=== PATIENT | female | born 1990 | race Caucasian/White ===

== ENCOUNTER 2019-01-12 08:42 | Emergency (ER) | payer BC ==
[2019-01-12] MEDS ORDERED: METHYLPREDNISOLONE 125 MG INJ ONE (09:00)
[2019-01-12] MEDS ORDERED: LEVALBUTEROL 1.25 MG/3 ML NEB ONE (09:00)
[2019-01-12 09:45] LABS: Absolute Lymphocytes (CBC) 3.6 K/uL (0.7-4.9); Hematocrit 41.7 % (36.0-45.0); MPV 9.8 fL (7.6-11.3); RBC Red Blood Cell Count 4.63 M/uL (3.86-4.86)
[2019-01-12 10:03] LABS: Urine Blood TRACE (NEG); Urine Glucose NEGATIVE (NEG); Urine Protein NEGATIVE (NEG); Urine Specific Gravity 1.025 (1.005-1.030); Urine pH 5.5 (5.0-7.0)
[2019-01-12] MEDS ORDERED: CODEINE 30MG/APAP 300MG TAB ONE ×2 (11:04→11:09)
[2019-01-12] MEDS ORDERED: PROMETHAZINE 25 MG TABLET ONE (11:04)
[2019-01-12] MEDS ORDERED: BENZONATATE 100 MG CAP PO ONE (11:04)
--- NOTE | 2019-01-12 12:30 | RAD REPORT ---
EXAM DESCRIPTION: CT - Chest For Pe Angio - 01/12/2019 12:22 pm CLINICAL HISTORY: cough; sob COMPARISON: None TECHNIQUE: Dynamically enhanced 3 mm thick images of the chest were obtained during administration o f approximately 100mL Isovue 370 IV contrast. Exam was repeated approximately 2 hours after the initi al examination due to excessive motion on the initial study. Patient received an additional 100 susan liters of contrast for the second scan. Coronal and oblique MIP reconstruction images were generated and reviewed. Exam utilizes a protocol to evaluate the pulmonary arterial tree. All CT scans are performed using dose optimization technique as appropriate and may include automated exposure control or mA/KV adjustment according to patient size. FINDINGS: No pulmonary emboli are identified. The aorta as imaged shows no acute or suspicious finding. No pericardial thickening or effusion. No infiltrate or mass. Minimal atelectasis in the posterior aspect of each lower lobe. No pleural eff usion or pleural thickening. No mediastinal or hilar suspicious masses. No chest wall masses or abnormal axillary lymphadenopathy. IMPRESSION: No pulmonary emboli identified. No other significant or suspicious findings.
--- NOTE | 2019-01-12 13:29 | ER ---
Nurse's Notes [facility] Name: Joanna Corado Age: 28 yrs Sex: Female : 1990 Arrival Date: 01/12/2019 Time: 08:45 Bed 13 Private MD: Diagnosis: Cough;Bronchitis, not specified as acute or chronic;Shortness of breath Presentation: 01/12 08:56 Presenting complaint: Patient states: has been dealing with bronchitis since November and has seen 2 MDs and been on mx abx and steroid packs. Last night the dyspnea started again and is worse with activity. Transition of care: patient was not received from another setting of care. Onset of symptoms was January 11, 2019. Risk Assessment: Do you want to hurt yourself or someone else? Patient reports no desire to harm self or others. Initial Sepsis Screen: Does the patient meet any 2 criteria? RR > 20 per min. No. Patient's initial sepsis screen is negative. Does the patient have a suspected source of infection? No. Patient's initial sepsis screen is negative. Care prior to arrival: None. 08:56 Method Of Arrival: Wheelchair 08:56 Acuity: DIAZ 2 sv Triage Assessment: 09:00 General: Appears uncomfortable, well groomed, well developed, Behavior is cooperative, sv appropriate for age. Pain: Denies pain. Neuro: Level of Consciousness is awake, alert, obeys commands, Oriented to person, place, time, situation, Moves all extremities. Full function Gait is steady. Respiratory: Reports shortness of breath at rest on exertion cough that is non-productive, persistent labored breathing since last night Airway is patent Respiratory effort is labored, shallow, Respiratory pattern is hyperventilation tachypnea Onset: The symptoms/episode began/occurred yesterday, the patient has moderate shortness of breath. Derm: Skin is pink, warm \T\ dry. 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 - Social history:: Smoking status: Patient/guardian denies using tobacco. - Ebola Screening: : No symptoms or risks identified at this time. Screenin:00 Abuse screen: Denies threats or abuse. Denies injuries from another. Nutritional sv screening: No deficits noted. Tuberculosis screening: No symptoms or risk factors identified. Fall Risk None identified. Assessment: 10:00 Cardiovascular: Heart tones S1 S2 present Capillary refill < 3 seconds Patient's skin ca1 is warm and dry. Rhythm is sinus rhythm. Respiratory: Reports cough that is persistent Airway is patent Respiratory effort is even, unlabored, Respiratory pattern is regular, symmetrical, Breath sounds are clear bilaterally. 10:05 Reassessment: Patient appears in no apparent distress at this time. Patient is alert, ca1 oriented x 3, equal unlabored respirations, skin warm/dry/pink. 11:15 Reassessment: Patient appears in no apparent distress at this time. Patient is alert, ca1 oriented x 3, equal unlabored respirations, skin warm/dry/pink. Unable to perform chest CT because of coughing unable to stay still. commercial hvac service technician informed provider. Meds ordered and given. Refused Tylenol#3 at this time. 12:32 Reassessment: Patient appears in no apparent distress at this time. Patient is alert, ca1 oriented x 3, equal unlabored respirations, skin warm/dry/pink. Pt back from CT. Unable to push contrast on initial IV, second IV inserted by EVERT Valencia, as reported by commercial hvac service technician. 13:30 Reassessment: Patient appears in no apparent distress at this time. Patient is alert, ca1 oriented x 3, equal unlabored respirations, skin warm/dry/pink. Vital Signs: 08:48 BP 124 / 84; Pulse 93; Resp 42; Temp 98.1; Pulse Ox 99% ; Weight 136.08 kg; sv 09:58 BP 109 / 72; Pulse 93; Resp 36; Pulse Ox 99% ; sv 10:57 BP 109 / 79; Pulse 89; Resp 32; Temp 97.5(O); Pulse Ox 100% ; mh5 11:22 BP 115 / 71; Pulse 92; Resp 19 S; Pulse Ox 98% on R/A; ca1 12:07 BP 103 / 73; Pulse 94; Resp 20; Pulse Ox 98% on R/A; mh5 13:28 BP 133 / 68; Pulse 88; Resp 17 S; Pulse Ox 96% on R/A; ca1 ED Course: 08:45 Patient arrived in ED. mr 08:45 Christiano Fishman MD is Attending Physician. kdr 08:56 Wendy Greenberg, EVERT is Primary Nurse. sv 08:57 Triage completed. sv 09:00 Patient has correct armband on for positive identification. Placed in gown. Bed in low sv position. Call light in reach. Pulse ox on. NIBP on. Door closed. Head of bed elevated. 09:00 Arm band placed on. sv 09:03 Radiology exam delayed due to test not completed at this time. mw3 09:05 Inserted saline lock: 20 gauge in right antecubital area, using aseptic technique. sv Blood collected. Flushed right antecubital with 5 ml normal saline. 09:46 Radiology exam delayed due to test not completed at this time. mw3 10:00 Urine collected: clean catch specimen, clear. mh5 10:02 Report given to Evelyn LOYD. sv 10:03 Evelyn Hill RN is Primary Nurse. ca1 10:20 CT completed. Patient tolerated procedure well. Patient moved back from CT. mw3 10:20 CT Chest For PE Angio In Process Unspecified. EDMS 11:24 Radiology exam delayed due to waiting for cough meds. mw3 12:20 Inserted saline lock: 22 gauge in right forearm, using aseptic technique. ,using ca1 aseptic technique. by EVERT Valencia. 12:22 Chest For Pe Angio In Process Unspecified. EDMS 13:43 No provider procedures requiring assistance completed. IV discontinued, intact, ca1 bleeding controlled, No redness/swelling at site. Pressure dressing applied. Administered Medications: 09:10 Drug: SOLU-Medrol 125 mg Route: IVP; Site: right antecubital; sv 10:00 Follow up: Response: No adverse reaction; Marked relief of symptoms ca1 09:10 Drug: Xopenex (3) 1.25 mg Route: Inhalation; sv 11:05 Drug: Phenergan 25 mg Route: PO; ca1 13:03 Follow up: Response: No adverse reaction; Pain is decreased ca1 11:07 Drug: Tessalon Perle 200 mg Route: PO; ca1 13:03 Follow up: Response: No adverse reaction; Marked relief of symptoms ca1 13:03 Not Given (Patient Refused): Tylenol #3 (300 mg-30 mg) 2 tabs PO once; RASS on ADMIN: ca1 Combtv4, Very Agttd3, Agttd2, Rstlss1, AlertClm0, Drwsy-1, Lt Sdtn-2, Mod Sdtn-3, Dp Sdtn-4, UnArsble-5 Outcome: 13:29 Discharge ordered by . kdr 13:44 Discharged to home ambulatory. ca1 13:44 Condition: stable 13:44 Discharge instructions given to patient, Instructed on discharge instructions, follow up and referral plans. medication usage, Demonstrated understanding of instructions, follow-up care, medications, Prescriptions given X x5 13:44 Patient left the ED. ca1 Signatures: Dispatcher [employer] EDMS Wendy Greenberg RN RN Christiano Fishman MD MD kdr Rivera, Esther mr Mitzi Bolck [facility] Ela Shepherd 3 Evelyn Hill RN RN ca1 Corrections: (The following items were deleted from the chart) 11:27 11:15 Reassessment: Patient appears in no apparent distress at this time. Patient is ca1 alert, oriented x 3, equal unlabored respirations, skin warm/dry/pink. Unable to perform chest CT because of coughing unable to stay still. commercial hvac service technician informed provider. Meds ordered and given ca1 13:43 13:30 BP 127 / 71; Pulse 82bpm; Resp 17bpm; Spontaneous; Pulse Ox 98% RA; ca1 ca1
--- NOTE | 2019-01-12 13:30 | EDPHYS ---
Physician Documentation [facility] Name: Joanna Corado Age: 28 yrs Sex: Female : 1990 Arrival Date: 01/12/2019 Time: 08:45 Bed 13 Private MD: ED Physician Christiano Fishman HPI: 01/12 10:16 This 28 yrs old Female presents to ER via Wheelchair with complaints of kdr Breathing Difficulty. 10:16 The patient has shortness of breath at rest, with light activity. Onset: The kdr symptoms/episode began/occurred gradually, yesterday. Duration: The symptoms are continuous, and are steadily getting worse. The patient's shortness of breath is aggravated by coughing, exertion, light activity, is alleviated by nothing, prescription meds. Associated signs and symptoms: Pertinent positives: non-productive cough, Pertinent negatives: diaphoresis, dizziness, fever, hemoptysis, loss of consciousness, nausea, numbness in extremities, visual changes, vomiting. Severity of symptoms: At their worst the symptoms were mild moderate in the emergency department the symptoms are unchanged. The patient has experienced similar episodes in the past, multiple times, chronically, The patient has had similar exacerbations over the past three months. These symptoms generally resolved with steroids and breathing treatments but keep recurring. The patient has been recently seen by a physician:. 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 - Social history:: Smoking status: Patient/guardian denies using tobacco. - Ebola Screening: : No symptoms or risks identified at this time. ROS: 10:16 Constitutional: Negative for fever, chills, and weight loss, Eyes: Negative for injury, kdr pain, redness, and discharge, Neck: Negative for injury, pain, and swelling, Cardiovascular: Negative for chest pain, palpitations, and edema, Abdomen/GI: Negative for abdominal pain, nausea, vomiting, diarrhea, and constipation, Back: Negative for injury and pain, : Negative for injury, bleeding, discharge, and swelling, MS/Extremity: Negative for injury and deformity, Skin: Negative for injury, rash, and discoloration, Neuro: Negative for headache, weakness, numbness, tingling, and seizure activity. Psych: Negative for depression, anxiety, suicide ideation, homicidal ideation, and hallucinations, Allergy/Immunology: Negative for hives, rash, and allergies, Endocrine: Negative for neck swelling, polydipsia, polyuria, polyphagia, and marked weight changes, Hematologic/Lymphatic: Negative for swollen nodes, abnormal bleeding, and unusual bruising. 10:16 Respiratory: Positive for cough, with clear sputum, dyspnea on exertion, shortness of breath, Negative for hemoptysis, orthopnea, pleurisy, wheezing. Exam: 10:16 Constitutional: This is a well developed, well nourished patient who is awake, alert, kdr and in mild distress. Head/Face: Normocephalic, atraumatic. Eyes: Pupils equal round and reactive to light, extra-ocular motions intact. Lids and lashes normal. Conjunctiva and sclera are non-icteric and not injected. Cornea within normal limits. Periorbital areas with no swelling, redness, or edema. Neck: Trachea midline, no thyromegaly or masses palpated, and no cervical lymphadenopathy. Supple, full range of motion without nuchal rigidity, or vertebral point tenderness. No Meningismus. Chest/axilla: Normal chest wall appearance and motion. Nontender with no deformity. No lesions are appreciated. Cardiovascular: Regular rate and rhythm with a normal S1 and S2. No gallops, murmurs, or rubs. Normal PMI, no JVD. No pulse deficits. Respiratory: Lungs have equal breath sounds bilaterally, clear to auscultation and percussion. No rales, rhonchi or wheezes noted. No increased work of breathing, no retractions or nasal flaring. Abdomen/GI: Soft, non-tender, with normal bowel sounds. No distension or tympany. No guarding or rebound. No evidence of tenderness throughout. Back: No spinal tenderness. No costovertebral tenderness. Full range of motion. Skin: Warm, dry with normal turgor. Normal color with no rashes, no lesions, and no evidence of cellulitis. MS/ Extremity: Pulses equal, no cyanosis. Neurovascular intact. Full, normal range of motion. Neuro: Awake and alert, GCS 15, oriented to person, place, time, and situation. Cranial nerves II-XII grossly intact. Motor strength 5/5 in all extremities. Sensory grossly intact. Cerebellar exam normal. Normal gait. Psych: Awake, alert, with orientation to person, place and time. Behavior, mood, and affect are within normal limits. 10:16 Respiratory: mild respiratory distress is noted, Respirations: Breath sounds: no acute changes, throughout, Respiratory rate: 36 Vital Signs: 08:48 BP 124 / 84; Pulse 93; Resp 42; Temp 98.1; Pulse Ox 99% ; Weight 136.08 kg; sv 09:58 BP 109 / 72; Pulse 93; Resp 36; Pulse Ox 99% ; sv 10:57 BP 109 / 79; Pulse 89; Resp 32; Temp 97.5(O); Pulse Ox 100% ; mh5 11:22 BP 115 / 71; Pulse 92; Resp 19 S; Pulse Ox 98% on R/A; ca1 12:07 BP 103 / 73; Pulse 94; Resp 20; Pulse Ox 98% on R/A; mh5 13:28 BP 133 / 68; Pulse 88; Resp 17 S; Pulse Ox 96% on R/A; ca1 MDM: 10:16 Data reviewed: vital signs, nurses notes, lab test result(s), radiologic studies. kdr 13:29 Patient medically screened. kdr 01/12 08:57 Order name: CBC with Diff; Complete Time: 10:30 kdr 01/12 08:57 Order name: Chem 7; Complete Time: 10:30 kdr 01/12 08:57 Order name: DD; Complete Time: 10:30 kdr 01/12 10:01 Order name: Urine Dipstick--Ancillary (enter results) ms 01/12 10:01 Order name: Urine --Ancillary (enter results) ms 01/12 10:53 Order name: Chest For Pe Angio; Complete Time: 13:23 EDMS Administered Medications: 09:10 Drug: SOLU-Medrol 125 mg Route: IVP; Site: right antecubital; sv 10:00 Follow up: Response: No adverse reaction; Marked relief of symptoms ca1 09:10 Drug: Xopenex (3) 1.25 mg Route: Inhalation; sv 11:05 Drug: Phenergan 25 mg Route: PO; ca1 13:03 Follow up: Response: No adverse reaction; Pain is decreased ca1 11:07 Drug: Tessalon Perle 200 mg Route: PO; ca1 13:03 Follow up: Response: No adverse reaction; Marked relief of symptoms ca1 13:03 Not Given (Patient Refused): Tylenol #3 (300 mg-30 mg) 2 tabs PO once; RASS on ADMIN: ca1 Combtv4, Very Agttd3, Agttd2, Rstlss1, AlertClm0, Drwsy-1, Lt Sdtn-2, Mod Sdtn-3, Dp Sdtn-4, UnArsble-5 Disposition: 01/12/19 13:29 Discharged to Home. Impression: Cough, Bronchitis, not specified as acute or chronic, Shortness of breath. - Condition is Stable. - Discharge Instructions: Shortness of Breath, [id number], Metered Dose Inhaler (No Spacer Used), Acute Bronchitis, [id number]. - Prescriptions for Tessalon Perles 100 mg Oral Capsule - take 1 capsule by ORAL route every 8 hours As needed; 15 capsule. Medrol (Jimmy) 4 mg Oral Tablets, Dose Pack - take 1 tablet by ORAL route as directed - follow package instructions; 1 packet. Albuterol Sulfate 90 mcg/actuation - inhale 1-2 puff by INHALATION route every 4-6 hours; 1 Inhaler. promethazine 25 mg Oral Tablet - take 1 tablet by ORAL route every 6 hours As needed; 20 tablet. Guaifenesin AC 10- 100 mg/5 mL Oral Liquid - take 10 milliliter by ORAL route every 4 hours As needed; 240 milliliter. - Medication Reconciliation Form, Thank You Letter, Work release form form. - Follow up: Private Physician; When: 2 - 3 days; Reason: If symptoms return, Further diagnostic work-up, Recheck today's complaints, Continuance of care, Re-evaluation by your physician. - Problem is an ongoing problem. - Symptoms have improved. Signatures: Dispatcher [employer] Wendy Wells, EVERT RN Christiano Aleman MD MD kdr Acob, Cheryl RN RN ca1 Corrections: (The following items were deleted from the chart) 13:44 13:29 01/12/2019 13:29 Discharged to Home. Impression: Cough; Bronchitis, not specified ca1 as acute or chronic; Shortness of breath. Condition is Stable. Forms are Medication Reconciliation Form, Thank You Letter, Antibiotic Education, Prescription Opioid Use. Follow up: Private Physician; When: 2 - 3 days; Reason: If symptoms return, Further diagnostic work-up, Recheck today's complaints, Continuance of care, Re-evaluation by your physician. Problem is an ongoing problem. Symptoms have improved. kdr
[2019-01-12 14:53] VITALS: TEMP 97.5
[2019-01-12 14:57] VITALS: BP 133/68; O2SAT 96
== END 2019-01-12 13:44 | disposition home or self-care (01) ==
LOC: ER 08:42
DX: J40 Bronchitis, not specified as acute or chronic (principal); R06.02 Shortness of breath; I10 Essential (primary) hypertension
CPT/HCPCS: 85025; 80048; 36415; 81025; 85379; 81003; 71275; 96374; 99285; Q9967; J2930; Q0169

== ENCOUNTER 2021-06-22 10:52 | Emergency (ER) | payer BC ==
--- OUTSIDE RECORDS SUMMARY | 2021-06-22 10:57 | XMS REPORT | Continuity of Care Document ---
:1990 Author Organization [facility] t Address [address] [place] [address] Care Team Providers Name Role Phone Rashmi Nava Primary Care Physician ANTHONY Heath Attending Clinician Unavailable Jose Garcia Attending Clinician Unavailable Yin Jones Attending Clinician Unavailable Yin Vallejo MD Attending Clinician Yin VALLEJO Attending Clinician Unavailable Zahida Dobbs Attending Clinician Unavailable Simon Attending Clinician Unavailable ANTHONY Heath Admitting Clinician Unavailable Jose Garcia Admitting Clinician Unavailable Yin Jones Admitting Clinician Unavailable Boaz Almeida Admitting Clinician Unavailable Payers Payer Name Policy Type Policy Number Effective Date Expiration Date S ource Problems This patient has no known problems. Allergies, Adverse Reactions, Alerts Allergy Allergy Status Severity Reaction(s) Onset Inactive Treating Comm ents Source Name Type Date Date Clinician No Known DA Active U [facility]ie 06-07 [place] [facility] 00:[facility]: [facility] 00 are [facility] No Known DA Active U [facility] Allergie 06-07 [place] 00:[facility]: [facility] 00 are [facility] No Known DA Active U 2017-0 [facility] Drug 5-18 Clear Allergie 00:00: [place] s 00 [facility] No Known DA Active U 2016-0 [facility] Drug 5-18 Clear Allergie 00:00: Peters s [facility] NO KNOWN Drug Active Univers ALLERGIE Class ity of [facility] Social History Social Habit Start Date Stop Date Quantity Comments Source Exposure to Not sure [facility] SARS-CoV-2 (event) [facility] Sex Assigned At [birth year] [facility] 00:00:00 00:00:00 [facility] Smoking Status Start Date Stop Date Source Unknown if ever smoked [facility] Medications This patient has no known medications. Procedures Procedure Date / Time Performed Performing Clinician Sourc e US ABDOMEN COMPLETE 2020-11-05 13:35:00 Christoph Vallejo [facility] [id number] 2020-06-13 00:00:00 RAFPO [facility] [id number] 2020-06-13 00:00:00 CLEJO [facility] [id number] 2020-06-13 00:00:00 CLEJO [facility] [id number] 2020-06-13 00:00:00 [facility] Encounters Start End Encounter Admission Attending Care Care Encounter Source Date/Time Date/Time Type Type Clinicians Facility Department ID 2020-07-01 Inpatient EM Nicolaskatrina [facility] MEDI.01 [id number] [facility] 20:09:00 Danny [id number] [facility] 2020-06-12 Inpatient UR Chuck Garcia [facility] MAS [id number] [facility] 20:41:00 [id number] [facility] 2020-06-11 Inpatient Stu Jones [facility] DAYS 20 [facility] 07:00:00 [id number] [facility] 2020-05-05 Inpatient Stu Jones [facility] USN [id number] [facility] 08:00:00 [id number] [facility] 2020-11-05 2020-11-05 [facility] Balbina [facility] [id number] [facility] 08:00:00 23:59:00 Encounter Christoph danielson [id number] yuri gabriel Yamil [id number] [facility] [id number] [facility] [address] 2020-11-05 2020-11-05 Outpatient Joshua MEEKLEROYSHIKHAMIKA [facility] [id number] [facility] 00:00:00 00:00:00 CHRISTOPH Danielson o f [facility] 2020-07-27 2020-07-27 Outpatient ED Dobbs [facility] DAYS 231 05-08 [facility] 03:27:00 03:27:00 Rocky [id number] [facility] 2020-06-13 2020-06-13 [facility] [id number] [facility] 08:59:00 08:59:00 [id number] [facility] 2019-12-31 2019-12-31 Outpatient ED Simon [facility] JESSICA [id number] [facility] 12:00:00 12:00:00 Bemookie [id number] [facility] Results Test Description Test Time Test Comments Results Result [facility] e Comments - XR 2020-07-28 ABSCESS/FIST/SIN 08:53:00 [facility] 1990 Sex: F Mike rogersnt Name: MAEVERashmiSARAH ROSAS Unit No: [id number] EXAMS: CPT CODE: [id number] XR ABSCESS/FIST/SIN [id number] Procedure: Percutaneous subhepatic drain contrast evaluation Location: W1 Clinical Indication: 29-year-old with recent cholecystectomy complicated by biloma. A drain was placed on June 13, 2020. On July 06, 2020, the catheter was injected, showing persistent fistulous communication with the biliary tree. Patient now returns for reassessment. Technique: Patient was placed supine on the angiography table. The patient had an existing subhepatic percutaneous cope loop drainage catheter. The catheter was flushed and injected with Isovue-300. Fluoroscopic images were stored for documentation. There was only minimal accumulation of contrast around the loop of the catheter. There was no persistent significant biloma cavity and there was no communication with the biliary tree. The catheter was subsequently cut and removed. Patient tolerated the procedure well. Impression: Previous noted subhepatic biloma is resolved. The catheter was removed. at 0853 Reported and signed by: Dain Shepherd MD CC: Rocky Dobbs Jr, MD; Stu Jones MD Technologist: Malvin Rosado Time: DAP (Gy m2): Air Kerma (mGy): Trscr Dt/Tm: 07/28/2020 (0853) by:[email or web address] Printed Date/Time: 07/28/2020 (0857) Name: MAKSARAH RALPH [facility] Phys: Rocky Murillo Jr, MD [address] : 1990 Age: 29 Sex: F [address]: [id number] Loc: P.SRG Exam Date: 07/27/2020 Status: DEP [facility] PH: FAX: PAGE 1 Signed Report UR HCG QUAL 2020-07-27 09:13:00 Test Item Value Reference Range Interpretation Comme nts UR HCG QUAL (test code = HCGQLU) NEGATIVE NEGATIVE COVID Asymptomatic IH [id number] 12:18:00 Test Item Value Reference Interpretation Comments Range COVID Negative Negative A negative resu lt does not Asymptomatic IH preclude the SARS-COV-2 NTX (test code = viralinfect ion and should not COVNONPUINTX) be used as the sole basis forpatient dee gement decisions. Nega tive results must becombined with clinical observations, p atient history, andepidemiologi tory information. Vi ral levels in clinicalsamples below the detection limit of the assay could lead tone gative results. This test was p erformed using the Logix Smart TM COVID-19 PCRassay. This test was developed and i ts performancechar acteristics were determined by [facility]. Thi s test has notbeen FDA chris ared or approved. This test is authorized by t heFDA under Emergency Use Authorization(E UA). The EUA willremain in e ffect unless it is terminated o r revoked by FDA . Testing p arameters have not been valida parul for screeningasympt omatic patients. This test was validated accor ding to the FDA's guidanced ocument "Policy for Diagnostics testing in LaboratoriesCer tified to Perform High Co mplexity Testing under C GUS". First test? UnknownEmployed in Healthcare? UnknownSymptomatic as defined by CDC? UnknownHospitalizeddue to COVID? UnknownIn ICU due to COVID? UnknownResident in a congregate care setting? Unknown? UnknownAge at collection: YBASIC METABOLIC [id number] 10:24:00 Test Item Value Reference Range Interpretation Comments SODIUM (test code 139 mmol/L 136-145 N Please not e: New = NA) Reference Range Mar 2020 POTASSIUM (test 3.5 mmol/L 3.5-5.1 N code = K) CHLORIDE (test 104 mmol/L 98-107 N Please note: New code = CL) Reference Range Mar 2020 CARBON DIOXIDE 26 mmol/L 20-31 N Please note: New (test code = CO2) Reference Range Mar 2020 GLUCOSE (test code 94 mg/dL 74-106 N Please no te: New = GLU) Reference Range Mar 2020 BLOOD UREA 9 mg/dL 9-23 N Please note: Ne w NITROGEN (test Reference Ran ge Feb code = BUN) 2020 GLOMERULAR >=60 max >60 The estimated FILTRATION RATE estimate glomerular (test code = GFR) filtration rate is computed usingpatient ra ce, age (>18), sex, and serum creatinin e. If anyof the neede d data elements a re missing the Laboratory mikaela ot compute an estimation of t he glomerular filtration rate . CREATININE (test 0.50 mg/dL 0.55-1.02 L Please note : New code = CREAT) Reference Rang e Mar 2020 CALCIUM (test code 9.7 mg/dL 8.7-10.4 N Please no te: New = CA) Reference Range Mar 2020 PROTHROMBIN [id number] 10:12:00 Test Item Value Reference Range Interpretation Comments PROTHROMBIN TIME 10.9 SECONDS 10.3-12.9 N PATIENT (test code = PTP) INTERNATIONAL 0.97 INR UNIT 0.9-1.11 N The INR is us eful only NORMAL RATIO (test for monit oring code = INR) anticoagulant therapy.It may be unreliable in t he initial phase o f antigoagulation and in unstable patien ts. Indication for Anticoagulation Recommend ed INR 1. Prevention o f venous thomboembolism 2.0-3.0in high -risk patients; treat ment of venousthrombosi s and pulmonary embol ism aftera course o f heparin; preven tion of systemicembolis m in a variety of cond itions, including atria l fibrillation an d prothetic tissu e heart valves, 2. Pros thetic mechanical hear t valves; 2.5-3.5recurren t systemic emboli sm. CBC W/AUTO [id number] 10:02:00 Test Item Value Reference Range Interpretation Comments WHITE BLOOD CELL (test code = 9.2 x10 3/uL 4.8-10.8 N WBC) RED BLOOD CELL (test code = 4.35 x10 6/uL 4.20-5.40 N RBC) HEMOGLOBIN (test code = HGB) 13.9 g/dL 12.0-16.0 N HEMATOCRIT (test code = HCT) 41.7 % 37.0-47.0 N MEAN CELL VOLUME (test code = 95.9 fL 81.0-99.0 N MCV) MEAN CELL HGB (test code = MCH) 32.0 pg 27-31 H MEAN CELL HGB CONCENTRATION 33.3 G/DL 33-36.5 N (test code = MCHC) RED CELL DISTRIBUTION WIDTH 13.3 % 12.9-16.9 N (test code = RDW) PLATELET COUNT (test code = 266 x10 3/uL 150-440 N PLT) MEAN PLATELET VOLUME (test code 12.2 fL 8.9-12.4 N = MPV) NEUTROPHIL % (test code = NT%) 66.5 % 42.2-75.2 N LYMPHOCYTE % (test code = LY%) 23.7 % 20.5-51.1 N MONOCYTE % (test code = MO%) 7.8 % 1.7-9.3 N EOSINOPHIL % (test code = EO%) 1.4 % 0.0-7.0 N BASOPHIL % (test code = BA%) 0.3 % 0-2.5 N NEUTROPHIL # (test code = NT#) 6.14 x10 3/uL 1.80-7.70 N LYMPHOCYTE # (test code = LY#) 2.19 x10 3/uL 1.00-4.80 N MONOCYTE # (test code = MO#) 0.72 x10 3/uL 0.00-0.80 N EOSINOPHIL # (test code = EO#) 0.13 x10 3/uL 0.00-0.45 N BASOPHIL # (test code = BA#) 0.03 x10 3/uL 0.0-0.20 N COMPREHENSIVE METABOLIC [id number] 05:55:00 Test Item Value Reference Range Interpretation Comments SODIUM (test code = 138 mmol/L 136-145 N Please n ote: New NA) Reference Range Mar 2020 POTASSIUM (test 4.2 mmol/L 3.5-5.1 N code = K) CHLORIDE (test code 105 mmol/L 98-107 N Please n ote: New = CL) Reference Range Mar 2020 CARBON DIOXIDE 26 mmol/L 20-31 N Please note: New (test code = CO2) Reference Range Mar 2020 GLUCOSE (test code 83 mg/dL 74-106 N Please no te: New = GLU) Reference Range Mar 2020 BLOOD UREA NITROGEN 5 mg/dL 9-23 L Please n ote: New (test code = BUN) Reference Range Mar 2020 GLOMERULAR >=60 max >60 The estimated FILTRATION RATE estimate glomerular (test code = GFR) filtration rate is computed usingpatient ra ce, age (>18), sex, and serum creatinin e. If anyof the ne eded data elements a re missing the Laboratory mikaela ot compute an estimation of t he glomerular filtration rate . CREATININE (test 0.50 mg/dL 0.55-1.02 L Please note : New code = CREAT) Reference Rang e Mar 2020 TOTAL PROTEIN (test 6.1 g/dL 5.7-8.2 N Please n ote: New code = PROT) Reference Range Mar 2020 ALBUMIN (test code 3.8 g/dL 3.2-4.8 N Please no te: New = ALB) Reference Range Mar 2020 CALCIUM (test code 9.1 mg/dL 8.7-10.4 N Please no te: New = CA) Reference Range Mar 2020 BILIRUBIN TOTAL 0.5 mg/dL 0.3-1.2 N Please note: New (test code = BILT) Reference Range Mar 2020 SGOT/AST (test code 32 U/L <34 N Please n ote: New = AST) Reference Range Mar 2020 SGPT/ALT (test code 55 U/L 10-49 H Please n ote: New = ALT) Reference Range Mar 2020 ALKALINE 76 U/L 46-116 N Please note: Ne w PHOSPHATASE (test Reference Range Feb code = ALKP) 2020 CBC W/AUTO [id number] 05:27:00 Test Item Value Reference Range Interpretation Comments WHITE BLOOD CELL (test code = 8.7 x10 3/uL 4.8-10.8 N WBC) RED BLOOD CELL (test code = 4.01 x10 6/uL 4.20-5.40 L RBC) HEMOGLOBIN (test code = HGB) 12.2 g/dL 12.0-16.0 N HEMATOCRIT (test code = HCT) 37.7 % 37.0-47.0 N MEAN CELL VOLUME (test code = 94.0 fL 81.0-99.0 N MCV) MEAN CELL HGB (test code = MCH) 30.4 pg 27-31 N MEAN CELL HGB CONCENTRATION 32.4 G/DL 33-36.5 L (test code = MCHC) RED CELL DISTRIBUTION WIDTH 13.1 % 12.9-16.9 N (test code = RDW) PLATELET COUNT (test code = 245 x10 3/uL 150-440 N PLT) MEAN PLATELET VOLUME (test code 11.7 fL 8.9-12.4 N = MPV) NEUTROPHIL % (test code = NT%) 48.0 % 42.2-75.2 N LYMPHOCYTE % (test code = LY%) 36.5 % 20.5-51.1 N MONOCYTE % (test code = MO%) 9.8 % 1.7-9.3 H EOSINOPHIL % (test code = EO%) 4.9 % 0.0-7.0 N BASOPHIL % (test code = BA%) 0.5 % 0-2.5 N NEUTROPHIL # (test code = NT#) 4.15 x10 3/uL 1.80-7.70 N LYMPHOCYTE # (test code = LY#) 3.16 x10 3/uL 1.00-4.80 N MONOCYTE # (test code = MO#) 0.85 x10 3/uL 0.00-0.80 H EOSINOPHIL # (test code = EO#) 0.42 x10 3/uL 0.00-0.45 N BASOPHIL # (test code = BA#) 0.04 x10 3/uL 0.0-0.20 N - SP CHG TUBE/DRN [id number] 16:17:00 [facility] 1990 Sex: FPatient Name: SARAH PADILLA Unit No: [id number] EXAMS: CPT CODE: [id number] SP CHG TUBE/DRN W/C 97313 EXAMINATION: DRAINAGE CATHETER EVALUATION AND CHANGE. LOCATION: W1. HISTORY: 29-year-old female status post cholecystectomy with postoperative bile leak, status post ERCP and gallbladder fossa drain placement, patient presents for drain evaluation. COMPARISON: CT abdomen 07/05/20. SEDATION: Under my supervision, Versed and fentanyl were administered intravenously for moderate sedation. Pulse oximetry, heart rate, and BP were continuously monitored by an independent trained observer present. I spent 20 minutes of svub-tz-gxgw sedation time with the patient. RADIATION DOSE: 81.9 mGy. TECHNIQUE/FINDINGS: Prior to beginning the procedure, [place] Protocol was used to confirm the patient's identity and planned procedure. Maximum sterile barriers including cap, mask, hand hygiene, sterile gloves, sterile gown, large sterile drape and cutaneous antisepsis were used. The skin overlying the collection was s terilely prepped, draped and infiltrated with 1% lidocaine. Initial fiberglass insulation installer imagedemonstrated CBD stent, dislodged pancreatic duct stent in ascending colon, cholecystectomy clips, postoperative clips in midline upper abdomen and right upper quadrant drainage catheter. Subsequently, the drainage catheter was injected with dilute contrast and multiplediagnostic fluoroscopic spot images were obtained. This demonstrated amorphous distribution of contrast around the catheter with subsequent opacification of right posterior hepatic duct. Contrast was seen in intrahepatic bile ducts, CBD around the CBD stent, as well as and cystic duct. Contrast was noted flowing into small bowel. The catheter was then exchanged over a guidewire for a new 10.2 [place]olan APD catheter. Limited contrast injection confirmed appropriate placement of the catheter. The catheter was draining yellow fluid with elements of purulent fluid. The catheter was secured in place with a stitch and connected to gravity. A sterile dressing was applied. ESTIMATED BLOOD LOSS: Minimal. Name: SARAH PADILLA [facility] Phys: Danny Goodman MD [address] : 1990 Age: 29 Sex: [place] [address] Loc: P.0619 1 Exam Date: 07/06/2020 Status: ADM IN PH: FAX: PAGE 1 Signed Report (CONTINUED) Patient Name: SARAH PADILLA Unit No: [id number] EXAMS: CPT CODE: [id number] SP CHG TUBE/DRN W/C 68851 <Continued> DISCHARGED TO: Recovery and then to inpatient unit. CONDITION: Stable. IMPRESSION: Persistent communication between gallbladder fossa drainage catheter and right posterior hepatic duct. Catheter was exchanged to facilitate drainage and resolution. PLAN: Continue to monitor catheter output as well as the patient's clinical condition. The catheter should be flushed with 10 cc saline, twice a day. Findings discussed with MD Salvatore at 07/06/2020 1:21 PM. at 1617 Reported and signed by: VALERIE BOWER M.D. CC: Danny Heath MD; Stu Jones MD Technologist: Malvin Rosado Time: DAP (Gy m2): Air Kerma (mGy): Trscr Dt/Tm: 07/06/2020 (1439) by:[email or web address] Printed Date/Time: 07/06/2020 (9019) Name: SARAH PADILLA [facility] Phys: Danny Goodman MD [address] : 1990 Age: 29 Sex: [place] [address] Loc: P.0619 1 Exam Date: 07/06/2020 Status: ADM IN PH: FAX: PAGE 2 Signed Report- XR ABSCESS/[id number] 16:17:00 [facility] : 1990 Sex: FPatient Name: SARAH PADILLA Unit No: [id number] EXAMS: CPT CODE: [id number] XR ABSCESS/FIST/SIN 29447 EXAMINATION: DRAINAGE CATHETER EVALUATION AND CHANGE. LOCATION: W1. HISTORY: 29-year-old female status post cholecystectomy with postoperative bile leak, status post ERCP and gallbladder fossa drain placement, patient presents for drain evaluation. COMPARISON: CT abdomen 07/05/20. SEDATION: Under my supervision, Versed and fentanyl were administered intravenously for moderate sedation. Pulse oximetry, heart rate, and BP were continuously monitored by an independent trained observer present. I spent 20 minutes of vptv-ni-woid sedation time with the patient. RADIATION DOSE: 81.9 mGy. TECHNIQUE/FINDINGS: Prior to beginning the procedure, [place] Protocol was used to confirm the patient's identity and planned procedure. Maximum sterile barriers including cap, mask, hand hygiene, sterile gloves, sterile gown, large sterile drape and cutaneous antisepsis were used. The skin overlying the collection was sterilely prepped, draped and infiltrated with 1% lidocaine. Initial fiberglass insulation installer imagedemonstrated CBD stent, dislodged pancreatic duct stent in ascending colon, cholecystectomy clips, postoperative clips in midline upper abdomen and right upper quadrant drainage catheter. Subsequently, the drainage catheter was injected with dilute contrast and multiplediagnostic fluoroscopic spot images were obtained. This demonstrated amorphous distribution of contrast around the catheter with subsequent opacification of right posterior hepatic duct. Contrast was seen in intrahepatic bile ducts, CBD around the CBD stent, as well as and cystic duct. Contrast was noted flowing into small bowel. The catheter was then exchanged over a guidewire for a new 10.2 Angolan APD catheter. Limited contrast injection confirmed appropriate placement of the catheter. The catheter was draining yellow fluid with elements of purulent fluid. The catheter was secured in place with a stitch and connected to gravity. A sterile dressing was applied. ESTIMATED BLOOD LOSS: Minimal. Name: SARAH PADILLA [facility] Phys: Danny Goodman MD [address] : 1990 Age: 29 Sex: F [place], [place] [address] Loc: P.0619 1 Exam Date: 07/06/2020 Status: ADM IN PH: FAX: PAGE 1 Signed Report (CONTINUED) Patient Name: SARAH PADILLA Unit No: [id number] EXAMS: CPT CODE: [id number] XR ABSCESS/FIST/SIN 91781 <Continued> DISCHARGED TO: Recovery and then to inpatient unit. CONDITION: Stable. IMPRESSION: Persistent communication between gallbladder fossa drainage catheter and right posterior hepatic duct. Catheter was exchanged to facilitate drainage and resolu tion. PLAN: Continue to monitor catheter output as well as the patient's clinical condition. The catheter should be flushed with 10 cc saline, twice a day. Findings discussed with MD Salvatore at 07/06/2020 1:21 PM. at 1617 Reported and signed by: VALERIE BOWER M.D. CC: Danny Heath MD; Stu Jones MD Technologist: Malvin Rosado Time: DAP (Gy m2): Air Kerma (mGy): Trscr Dt/Tm: 07/06/2020 (3355) by:[email or web address] Printed Date/Time: 07/06/2020 (4356) Name: SARAH PADILLA [facility] Phys: Danny Goodman MD [address] : 1990 Age: 29 Sex: [place] [address] Loc: P.0619 1 Exam Date: 07/06/2020 Status: ADM IN PH: FAX: PAGE 2 Signed Report- CT ABD PELVIS W/O [id number] 16:00:00 [facility] 1990 Sex: FPatient Name: SARAH PADILLA Unit No: [id number] EXAMS: CPT CODE: [id number] CT ABD PELVIS W/O CONT 02689 EXAMINATION: - CT ABD PELVIS W/O CONT. LOCATION: W1. HISTORY: Evaluate for R colon injury, recent gallbladder fossa tube change. COMPARISON: CT abdomen 07/05/2020. Tube evaluation 07/06/2020. TECHNIQUE: CT of abdomen and pelvis was performed without oral or intravenous contrast as protocol. One ormore the following dose reduction techniques were used: Automated exposure control, adjustment of mA and/or kV according to patient size, and use of iterative reconstruction technique. FINDINGS: Evaluation of intra-abdominal viscera is limited due to lack of oral and intravenous contrast. Visualized lung bases demonstrate dependent changes. Cholecystectomy. Drainage catheter is noted in gallbladder fossa. CBD stent and pneumobilia noted. Liver, spleen, pancreas and adrenals appear unremarkable. No nephr oureterolithiasis. No hydroureteronephrosis. Underdistended urinary bladder. The bowel loops appear normal in course. No bowel obstruction. Postoperative changes of stomach. Distended ascending colon and terminal ileum containing stool. Pancreatic duct stent is notedwithin ascending colon. Contrast from recent tube evaluation is noted within distal small bowel and cecum. No abdominal or pelvic bulky lymphadenopathy. No pneumoperitoneum. Trace pelvic free fluid. Uterus appears unremarkable by CT technique. 3.6 cm right ovarian cyst. Dropped clip is noted in pelvis. Visualized osseous structures appear unremarkable. IMPRESSION: No pneumoperitoneum. No extravasated contrast in right upper quadrant from recent tube evaluation. Contrast is noted within distal small bowel and cecum from recent procedure. Distended ascending colon and terminal ileum containing stool, similar to prior exam. Name: SARAH PADILLA RALPH [facility] Phys: [facility]. Anh Chase [address] : 1990 Age: 29 Sex: [place] [address] Loc: P.0619 1 Exam Date: 07/06/2020 Status: ADM IN PH: FAX: PAGE 1 Signed Report (CONTINUED) Patient Name: SARAH PADILLA Unit No: [id number] EXAMS: CPT CODE: [id number] CT ABD PELVIS W/O CONT 76100 <Continued> Findings discussed with MD Salvatore at 07/06/2020 3:49 PM. at 1600 Reported and signed by: VALERIE BOWER M.D. CC: Anh Chase MD; Danny Heath MD; Stu Jones MD Technologist: SARAI CHANDRA RT(R),(CT) CTDI: 27.29 DLP:[id number] Trscr Dt/Tm: 07/06/2020 (1600) by:[email or web address] Printed Date/Time: 07/06/2020 (0939) Name: SARAH PADILLA [facility] Phys: [facility].Enrique - Anh Chase [address] : 1990 Age:29 Sex: F [place] [address] Loc: P.0619 1 Exam Date: 07/06/2020 Status: ADM IN PH: FAX:PAGE 2 Signed Report- CT ABD PELVIS [id number] 14:29:00 [facility] : 1990 Sex: FPatient Name: SARAH PADILLA Unit No: [id number] EXAMS: CPT CODE: [id number] CT ABD PELVIS W/CONT 65811 Location: A1 EXAM: CT ABDOMEN AND PELVISWITH CONTRAST INDICATION: Gallbladder fossa infection. COMPARISON: CT chest dated 06/14/2020. TECHNIQUE: CT of the abdomen and pelvis was performed with intravenous contrast. All CT scans are performed using radiation dose reduction technique. Technical factors are evaluated and adjusted to insure appropriate moderation of exposure. Automated dose management technology is applied to adjust the radiation dose to minimize exposure while achieving a diagnostic quality image. DLP: 1506 mGy-cm FINDINGS: Thoracic: There are mild atelectatic changes within the lung bases. Hepatobiliary: No focal liver lesion is identified. There is a stent within the common bileduct. No intrahepatic biliary ductal dilatation. The main portal vein is patent. Gallbladder: Status post cholecystectomy. There is a right upper quadrant percutaneous pigta il drain, which tip located within a gallbladder fossa complex collection of fluid and air, measuring 2.4 x 0.6 cm axially by 1.8 cm superior to inferior. There is surrounding fat stranding and trace fluid within the right upper quadrant. Pancreas: Unremarkable. Spleen: Unremarkable. Adrenals: Unremarkable. Kidneys: There is no evidence of renal calculus. There is no evidence of hydronephrosis of either kidney. Nosolid renal lesion is identified. Bladder/Reproductive system: Evaluation of the bladder is limited, but no obvious bladder abnormality is present. There is a 3.6 cm fluid density lesion within the right adnexa, almost certainly benign. No follow-up is required specifically for this lesion. No other obvious abnormalities of the uterus or ovaries. Gastrointestinal/peritoneum: There is inflammatory wall thickening of the ascending colon at the hepatic flexure. There is a moderate to large fecal burden within the descending colon and distal ileum, with Name: SARAH PADILLA [facility] Phys: Rocky Murillo Jr, MD [address] : 1990 Age: 29 Sex: [place] [address] Loc: P.[phone] 1 Exam Date: 07/05/2020 Status: ADM IN PH: FAX: PAGE 1 Signed Report (CONTINUED) Patient Name: SARAH PADILLA Unit No: [id number] EXAMS: CPT CODE: [id number] CT ABD PELVIS W/CONT 32721 <Continued> dilatation of the distal ileum up to 6.5 cm. There is a transition to normal caliber colon past the hepatic flexure. There is a linear radiopaque structure within the cecum, measuring approximately 4.7 cm in length (such as on images 57 through 72 of series 4) which is nonspecific. The appendix is normal. There are postoperative changes along the stomach. There is a small hiatal hernia. There is wall thickening of the 1st and 2nd portions of the duodenum. There is a small amount of pelvic and perihepatic ascites. Interval decrease inpneumoperitoneum. Vascular: The aorta is grossly normal in appearance. Lymphatics: No enlarged lymph nodes by CT size criteria. Bones/Soft Tissues: No acute os seous findings. There is a small fat-containing umbilical hernia. There is nonspecific subcutaneous edema along the flanks. IMPRESSION: Interval decrease in pneumoperitoneum and right upper quadrant ascites. Right upper quadrant p ercutaneous pigtail drain in place, with tip within a 2.4 cm complex collection of fluid andair within the gallbladder fossa. Possibilities include postoperative seroma, biloma and/or abscess. Inflammatory wall thickening of the duodenum and ascending colon, likely reactive given proximity to the above. Of note, there is dilatation of the distal ileum and ascending colon proximal to the hepatic flexure. Cannot exclude a developingelement element of inflammation mediated ileus/obstruction. There is a stent within the common bile duct. There is an additional 4.6 cm radiopaque intraluminal tubular structure within the cecum, which is nonspecific. A migrated biliary stent is not excluded. Additional chronic findings, as above. at 1429 Reported and signed by: RICK HIGH M.D. Name: SARAH PADILLA [facility] Phys: Rocky Murillo Jr, MD [address] DOB: 1990 Age: 29 Sex: F [place] [address] Loc: [phone] 1 Exam Date: 07/05/2020 Status : ADM IN PH: FAX: PAGE 2 Signed Report (CONTINUED) Patient Name: SARAH PADILLA Unit No: [id number] EXAMS: CPT CODE: [id number] CT ABD PELVIS W/CONT 09932 <Continued> CC: Rocky Dobbs Jr, MD; Danny Heath MD; Stu Jones MD Technologist: Malvin Dacosta CTDI: 27.29 DLP: 1506 Trs Dt/Tm: 07/05/2020 (1429) by:[email or web address] Printed Date/Time: 07/05/2020 (1433) Name: SARAH PADILLA [facility] Phys: Rocky Murillo Jr, MD [address] DOB: 1990 Age: 29 Sex: F [place] [address] Loc: [phone] 1 Exam Date: 07/05/2020 Status: ADM IN PH: FAX: PAGE 3 Signed ReportCOMPREHENSIVE METABOLIC PANEL 2020-07-05 04:27:00 Test Item Value Reference Range Interpretation Comments SODIUM (test code = 140 mmol/L 136-145 N Please n ote: New NA) Reference Range Mar 2020 POTASSIUM (test 3.7 mmol/L 3.5-5.1 N code = K) CHLORIDE (test code 105 mmol/L 98-107 N Please n ote: New = CL) Reference Range Mar 2020 CARBON DIOXIDE 24 mmol/L 20-31 N Please note: New (test code = CO2) Reference Range Mar 2020 GLUCOSE (test code 88 mg/dL 74-106 N Please no te: New = GLU) Reference Range Mar 2020 BLOOD UREA NITROGEN < 5 mg/dL 9-23 L Please n ote: New (test code = BUN) Reference Range Mar 2020 GLOMERULAR >=60 max >60 The estimated FILTRATION RATE estimate glomerular (test code = GFR) filtration rate is computed usingpatient ra ce, age (>18), sex, and serum creatinin e. If anyof the ne eded data elements a re missing the Laboratory mikaela ot compute an estimation of t he glomerular filtration rate . CREATININE (test 0.50 mg/dL 0.55-1.02 L Please note : New code = CREAT) Reference Rang e Mar 2020 TOTAL PROTEIN (test 5.6 g/dL 5.7-8.2 L Please n ote: New code = PROT) Reference Range Mar 2020 ALBUMIN (test code 3.6 g/dL 3.2-4.8 N Please no te: New = ALB) Reference Range Mar 2020 CALCIUM (test code 9.3 mg/dL 8.7-10.4 N Please no te: New = CA) Reference Range Mar 2020 BILIRUBIN TOTAL 0.5 mg/dL 0.3-1.2 N Please note: New (test code = BILT) Reference Range Mar 2020 SGOT/AST (test code 46 U/L <34 H Please n ote: New = AST) Reference Range Mar 2020 SGPT/ALT (test code 69 U/L 10-49 H Please n ote: New = ALT) Reference Range Mar 2020 ALKALINE 81 U/L 46-116 N Please note: Ne w PHOSPHATASE (test Reference Range Feb code = ALKP) 2020 CBC W/AUTO [id number] 04:03:00 Test Item Value Reference Range Interpretation Comments WHITE BLOOD CELL (test code = 8.3 x10 3/uL 4.8-10.8 N WBC) RED BLOOD CELL (test code = 3.60 x10 6/uL 4.20-5.40 L RBC) HEMOGLOBIN (test code = HGB) 11.3 g/dL 12.0-16.0 L HEMATOCRIT (test code = HCT) 34.1 % 37.0-47.0 L MEAN CELL VOLUME (test code = 94.7 fL 81.0-99.0 N MCV) MEAN CELL HGB (test code = MCH) 31.4 pg 27-31 H MEAN CELL HGB CONCENTRATION 33.1 G/DL 33-36.5 N (test code = MCHC) RED CELL DISTRIBUTION WIDTH 12.4 % 12.9-16.9 L (test code = RDW) PLATELET COUNT (test code = 216 x10 3/uL 150-440 N PLT) MEAN PLATELET VOLUME (test code 12.1 fL 8.9-12.4 N = MPV) NEUTROPHIL % (test code = NT%) 50.9 % 42.2-75.2 N LYMPHOCYTE % (test code = LY%) 37.9 % 20.5-51.1 N MONOCYTE % (test code = MO%) 8.3 % 1.7-9.3 N EOSINOPHIL % (test code = EO%) 2.3 % 0.0-7.0 N BASOPHIL % (test code = BA%) 0.4 % 0-2.5 N NEUTROPHIL # (test code = NT#) 4.24 x10 3/uL 1.80-7.70 N LYMPHOCYTE # (test code = LY#) 3.16 x10 3/uL 1.00-4.80 N MONOCYTE # (test code = MO#) 0.69 x10 3/uL 0.00-0.80 N EOSINOPHIL # (test code = EO#) 0.19 x10 3/uL 0.00-0.45 N BASOPHIL # (test code = BA#) 0.03 x10 3/uL 0.0-0.20 N COMPREHENSIVE METABOLIC [id number] 05:19:00 Test Item Value Reference Range Interpretation Comments SODIUM (test code = 138 mmol/L 136-145 N Please n ote: New NA) Reference Range Mar 2020 POTASSIUM (test 4.0 mmol/L 3.5-5.1 N code = K) CHLORIDE (test code 105 mmol/L 98-107 N Please n ote: New = CL) Reference Range Mar 2020 CARBON DIOXIDE 24 mmol/L 20-31 N Please note: New (test code = CO2) Reference Range Mar 2020 GLUCOSE (test code 88 mg/dL 74-106 N Please no te: New = GLU) Reference Range Mar 2020 BLOOD UREA NITROGEN < 5 mg/dL 9-23 L Please n ote: New (test code = BUN) Reference Range Mar 2020 GLOMERULAR >=60 max >60 The estimated FILTRATION RATE estimate glomerular (test code = GFR) filtration rate is computed usingpatient ra ce, age (>18), sex, and serum creatinin e. If anyof the ne eded data elements a re missing the Laboratory mikaela ot compute an estimation of t he glomerular filtration rate . CREATININE (test 0.50 mg/dL 0.55-1.02 L Please note : New code = CREAT) Reference Rang e Mar 2020 TOTAL PROTEIN (test 5.8 g/dL 5.7-8.2 N Please n ote: New code = PROT) Reference Range Mar 2020 ALBUMIN (test code 3.7 g/dL 3.2-4.8 N Please no te: New = ALB) Reference Range Mar 2020 CALCIUM (test code 9.0 mg/dL 8.7-10.4 N Please no te: New = CA) Reference Range Mar 2020 BILIRUBIN TOTAL 1.1 mg/dL 0.3-1.2 N Please note: New (test code = BILT) Reference Range Mar 2020 SGOT/AST (test code 45 U/L <34 H Please n ote: New = AST) Reference Range Mar 2020 SGPT/ALT (test code 65 U/L 10-49 H Please n ote: New = ALT) Reference Range Mar 2020 ALKALINE 93 U/L 46-116 N Please note: Ne w PHOSPHATASE (test Reference Range Feb code = ALKP) 2020 COMPREHENSIVE METABOLIC [id number] 04:56:00 Test Item Value Reference Range Interpretation Comments SODIUM (test code = 138 mmol/L 136-145 N Please n ote: New NA) Reference Range Mar 2020 POTASSIUM (test 4.0 mmol/L 3.5-5.1 N code = K) CHLORIDE (test code 105 mmol/L 98-107 N Please n ote: New = CL) Reference Range Mar 2020 CARBON DIOXIDE 24 mmol/L 20-31 N Please note: New (test code = CO2) Reference Range Mar 2020 GLUCOSE (test code 88 mg/dL 74-106 N Please no te: New = GLU) Reference Range Mar 2020 BLOOD UREA NITROGEN mg/dL 9-23 (test code = BUN) GLOMERULAR >=60 max >60 The estimated FILTRATION RATE estimate glomerular (test code = GFR) filtration rate is computed usingpatient ra ce, age (>18), sex, and serum creatinin e. If anyof the ne eded data elements a re missing the Laboratory mikaela ot compute an estimation of t he glomerular filtration rate . CREATININE (test 0.50 mg/dL 0.55-1.02 L Please note : New code = CREAT) Reference Rang e Mar 2020 TOTAL PROTEIN (test 5.8 g/dL 5.7-8.2 N Please n ote: New code = PROT) Reference Range Mar 2020 ALBUMIN (test code 3.7 g/dL 3.2-4.8 N Please no te: New = ALB) Reference Range Mar 2020 CALCIUM (test code 9.0 mg/dL 8.7-10.4 N Please no te: New = CA) Reference Range Mar 2020 BILIRUBIN TOTAL 1.1 mg/dL 0.3-1.2 N Please note: New (test code = BILT) Reference Range Mar 2020 SGOT/AST (test code 45 U/L <34 H Please n ote: New = AST) Reference Range Mar 2020 SGPT/ALT (test code 65 U/L 10-49 H Please n ote: New = ALT) Reference Range Mar 2020 ALKALINE 93 U/L 46-116 N Please note: Ne w PHOSPHATASE (test Reference Range Feb code = ALKP) 2020 CBC W/AUTO [id number] 04:35:00 Test Item Value Reference Range Interpretation Comments WHITE BLOOD CELL (test code = 10.4 x10 3/uL 4.8-10.8 N WBC) RED BLOOD CELL (test code = 3.66 x10 6/uL 4.20-5.40 L RBC) HEMOGLOBIN (test code = HGB) 11.5 g/dL 12.0-16.0 L HEMATOCRIT (test code = HCT) 35.0 % 37.0-47.0 L MEAN CELL VOLUME (test code = 95.6 fL 81.0-99.0 N MCV) MEAN CELL HGB (test code = MCH) 31.4 pg 27-31 H MEAN CELL HGB CONCENTRATION 32.9 G/DL 33-36.5 L (test code = MCHC) RED CELL DISTRIBUTION WIDTH 12.8 % 12.9-16.9 L (test code = RDW) PLATELET COUNT (test code = 274 x10 3/uL 150-440 N PLT) MEAN PLATELET VOLUME (test code 11.1 fL 8.9-12.4 N = MPV) NEUTROPHIL % (test code = NT%) 56.3 % 42.2-75.2 N LYMPHOCYTE % (test code = LY%) 31.0 % 20.5-51.1 N MONOCYTE % (test code = MO%) 8.8 % 1.7-9.3 N EOSINOPHIL % (test code = EO%) 3.2 % 0.0-7.0 N BASOPHIL % (test code = BA%) 0.4 % 0-2.5 N NEUTROPHIL # (test code = NT#) 5.84 x10 3/uL 1.80-7.70 N LYMPHOCYTE # (test code = LY#) 3.21 x10 3/uL 1.00-4.80 N MONOCYTE # (test code = MO#) 0.91 x10 3/uL 0.00-0.80 H EOSINOPHIL # (test code = EO#) 0.33 x10 3/uL 0.00-0.45 N BASOPHIL # (test code = BA#) 0.04 x10 3/uL 0.0-0.20 N - HEPA IMAG INCL [id number] 12:51:00 [facility] 1990 Sex: FPatient Name: SARAH PADILLA Unit No: [id number] EXAMS: CPT CODE: [id number] [place] [address] Clinical history: Assess for bile leak. Location: A1 Findings: Following the intravenous administration of 6.3 mCi technetium 99mmebrofenin, anterior dynamic images are performed of the abdomen for a total of 55 minutes. There is normal hepatic uptake of radiotracer. There is normal biliary to bowel transit. . Small amount of bile accumulation is seen in the region of the gallbladder fossa that is drained by the gallbladder fossa catheter, consistent with bile leak. Impression: 1. There is evidence of persistent bile leak within the gallbladder fossa. at 1251 Reported and signed by: TIFF WEAVER M.D. CC: Rocky Dobbs Jr, MD; Danny Heath MD; Stu Jones MD Technologist: Minna Cortez Trscr Dt/Tm: 07/02/2020 (9396) by:[email or web address] Printed Date/Time: 07/02/2020 (8514) Name: SARAH PADILLA [facility] Phys: Rocky Murillo Jr, MD [address] : 1990 Age: 29 Sex: F [place], [place] [id number] Loc: P.[phone] 1 Exam Date: 07/02/2020 Status: ADM INPH: FAX: PAGE 1 Signed ReportCOMPREHENSIVE METABOLIC PANEL 2020-07-02 04:44:00 Test Item Value Reference Range Interpretation Comments SODIUM (test code = 136 mmol/L 136-145 N Please n ote: New NA) Reference Range Mar 2020 POTASSIUM (test 3.9 mmol/L 3.5-5.1 N code = K) CHLORIDE (test code 105 mmol/L 98-107 N Please n ote: New = CL) Reference Range Mar 2020 CARBON DIOXIDE 24 mmol/L 20-31 N Please note: New (test code = CO2) Reference Range Mar 2020 GLUCOSE (test code 84 mg/dL 74-106 N Please no te: New = GLU) Reference Range Mar 2020 BLOOD UREA NITROGEN 9 mg/dL 9-23 N Please n ote: New (test code = BUN) Reference Range Mar 2020 GLOMERULAR >=60 max >60 The estimated FILTRATION RATE estimate glomerular (test code = GFR) filtration rate is computed usingpatient ra ce, age (>18), sex, and serum creatinin e. If anyof the ne eded data elements a re missing the Laboratory mikaela ot compute an estimation of t he glomerular filtration rate . CREATININE (test 0.60 mg/dL 0.55-1.02 N Please note : New code = CREAT) Reference Rang e Mar 2020 TOTAL PROTEIN (test 5.8 g/dL 5.7-8.2 N Please n ote: New code = PROT) Reference Range Mar 2020 ALBUMIN (test code 3.7 g/dL 3.2-4.8 N Please no te: New = ALB) Reference Range Mar 2020 CALCIUM (test code 8.9 mg/dL 8.7-10.4 N Please no te: New = CA) Reference Range Mar 2020 BILIRUBIN TOTAL 1.6 mg/dL 0.3-1.2 H Please note: New (test code = BILT) Reference Range Mar 2020 SGOT/AST (test code 42 U/L <34 H Please n ote: New = AST) Reference Range Mar 2020 SGPT/ALT (test code 51 U/L 10-49 H Please n ote: New = ALT) Reference Range Mar 2020 ALKALINE 91 U/L 46-116 N Please note: Ne w PHOSPHATASE (test Reference Range Feb code = ALKP) 2020 [id number] 04:44:00 Test Item Value Reference Range Interpretation Comments PHOSPHOROUS (test code 4.7 mg/dL 2.4-5.1 N Pleas e note: New = PHOS) Reference Range Mar 2020 [id number] 04:44:00 Test Item Value Reference Range Interpretation Comments MAGNESIUM (test code = 1.8 mg/dL 1.6-2.6 N Pleas e note: New MAG) Reference Range Mar 2020 THYROID STIMULATING [id number] 04:44:00 Test Item Value Reference Range Interpretation Comments THYROID STIMULATING 2.52 mIU/mL 0.55-4.78 N Please n ote: New HORMONE (test code = Referen ce Range Mar TSH) 2020 CBC W/AUTO [id number] 04:27:00 Test Item Value Reference Range Interpretation Comments WHITE BLOOD CELL (test code = 11.8 x10 3/uL 4.8-10.8 H WBC) RED BLOOD CELL (test code = 3.65 x10 6/uL 4.20-5.40 L RBC) HEMOGLOBIN (test code = HGB) 11.2 g/dL 12.0-16.0 L HEMATOCRIT (test code = HCT) 34.9 % 37.0-47.0 L MEAN CELL VOLUME (test code = 95.6 fL 81.0-99.0 N MCV) MEAN CELL HGB (test code = MCH) 30.7 pg 27-31 N MEAN CELL HGB CONCENTRATION 32.1 G/DL 33-36.5 L (test code = MCHC) RED CELL DISTRIBUTION WIDTH 13.1 % 12.9-16.9 N (test code = RDW) PLATELET COUNT (test code = 323 x10 3/uL 150-440 N PLT) MEAN PLATELET VOLUME (test code 11.2 fL 8.9-12.4 N = MPV) NEUTROPHIL % (test code = NT%) 62.4 % 42.2-75.2 N LYMPHOCYTE % (test code = LY%) 23.4 % 20.5-51.1 N MONOCYTE % (test code = MO%) 10.4 % 1.7-9.3 H EOSINOPHIL % (test code = EO%) 2.8 % 0.0-7.0 N BASOPHIL % (test code = BA%) 0.6 % 0-2.5 N NEUTROPHIL # (test code = NT#) 7.33 x10 3/uL 1.80-7.70 N LYMPHOCYTE # (test code = LY#) 2.75 x10 3/uL 1.00-4.80 N MONOCYTE # (test code = MO#) 1.22 x10 3/uL 0.00-0.80 H EOSINOPHIL # (test code = EO#) 0.33 x10 3/uL 0.00-0.45 N BASOPHIL # (test code = BA#) 0.07 x10 3/uL 0.0-0.20 N COMPREHENSIVE METABOLIC [id number] 04:35:00 Test Item Value Reference Range Interpretation Comments SODIUM (test code = 138 mmol/L 136-145 N Please n ote: New NA) Reference Range Mar 2020 POTASSIUM (test 3.1 mmol/L 3.5-5.1 L code = K) CHLORIDE (test code 103 mmol/L 98-107 N Please n ote: New = CL) Reference Range Mar 2020 CARBON DIOXIDE 26 mmol/L 20-31 N Please note: New (test code = CO2) Reference Range Mar 2020 GLUCOSE (test code 100 mg/dL 74-106 N Please no te: New = GLU) Reference Range Mar 2020 BLOOD UREA NITROGEN 6 mg/dL 9-23 L Please n ote: New (test code = BUN) Reference Range Mar 2020 GLOMERULAR >=60 max >60 The estimated FILTRATION RATE estimate glomerular (test code = GFR) filtration rate is computed usingpatient ra ce, age (>18), sex, and serum creatinin e. If anyof the ne eded data elements a re missing the Laboratory mikaela ot compute an estimation of t he glomerular filtration rate . CREATININE (test 0.40 mg/dL 0.55-1.02 L Please note : New code = CREAT) Reference Rang e Mar 2020 TOTAL PROTEIN (test 5.4 g/dL 5.7-8.2 L Please n ote: New code = PROT) Reference Range Mar 2020 ALBUMIN (test code 3.6 g/dL 3.2-4.8 N Please no te: New = ALB) Reference Range Mar 2020 CALCIUM (test code 7.9 mg/dL 8.7-10.4 L Please no te: New = CA) Reference Range Mar 2020 BILIRUBIN TOTAL 1.0 mg/dL 0.3-1.2 N Please note: New (test code = BILT) Reference Range Mar 2020 SGOT/AST (test code 17 U/L <34 N Please n ote: New = AST) Reference Range Mar 2020 SGPT/ALT (test code 78 U/L 10-49 H Please n ote: New = ALT) Reference Range Mar 2020 ALKALINE 79 U/L 46-116 N Please note: Ne w PHOSPHATASE (test Reference Range Feb code = ALKP) 2020 [id number] 04:35:00 Test Item Value Reference Range Interpretation Comments LIPASE (test code = 49 U/L 12-53 N Please n ote: New LIP) Reference Range Mar 2020 CBC W/AUTO [id number] 04:08:00 Test Item Value Reference Range Interpretation Comments WHITE BLOOD CELL (test code = 12.2 x10 3/uL 4.8-10.8 H WBC) RED BLOOD CELL (test code = 3.72 x10 6/uL 4.20-5.40 L RBC) HEMOGLOBIN (test code = HGB) 11.5 g/dL 12.0-16.0 L HEMATOCRIT (test code = HCT) 34.6 % 37.0-47.0 L MEAN CELL VOLUME (test code = 93.0 fL 81.0-99.0 N MCV) MEAN CELL HGB (test code = MCH) 30.9 pg 27-31 N MEAN CELL HGB CONCENTRATION 33.2 G/DL 33-36.5 N (test code = MCHC) RED CELL DISTRIBUTION WIDTH 12.4 % 12.9-16.9 L (test code = RDW) PLATELET COUNT (test code = 263 x10 3/uL 150-440 N PLT) MEAN PLATELET VOLUME (test code 11.2 fL 8.9-12.4 N = MPV) NEUTROPHIL % (test code = NT%) 71.8 % 42.2-75.2 N LYMPHOCYTE % (test code = LY%) 14.3 % 20.5-51.1 L MONOCYTE % (test code = MO%) 10.3 % 1.7-9.3 H EOSINOPHIL % (test code = EO%) 2.6 % 0.0-7.0 N BASOPHIL % (test code = BA%) 0.3 % 0-2.5 N NEUTROPHIL # (test code = NT#) 8.77 x10 3/uL 1.80-7.70 H LYMPHOCYTE # (test code = LY#) 1.75 x10 3/uL 1.00-4.80 N MONOCYTE # (test code = MO#) 1.26 x10 3/uL 0.00-0.80 H EOSINOPHIL # (test code = EO#) 0.32 x10 3/uL 0.00-0.45 N BASOPHIL # (test code = BA#) 0.04 x10 3/uL 0.0-0.20 N ANTINUCLEAR ANTIBODIES [id number] 13:11:00 Test Item Value Reference Range Interpretation Comments NILS SCREEN (test Negative See_Comment code = ANASCR) Ne gative <1:80 Borderline 1:8 0 Positive >1:80Performed At: [facility] [address] [id number] Nacho Reed MD Ph:[phone] [ Automated message] The sy stem which generated this result transmitted ref erence range: (). The reference range was not u sed to interpret this result as normal/abnormal . SURGICAL [id number] 08:45:00 Test Item Value Reference Range Interpretation Comments SURGICAL SPECIMENS (test code = SURG) RUN DATE: 06/16/20 [facility] - LAB PAGE 1 RUN TIME: 45 Specimen Inquiry RUN USER: INTERFACE PATIENT: SARAH PADILLA LOC: EVIE U #: [id number] AGE/SX: 29/F ROOM: RE06/11/20REG DR: Stu Jones MD : [birth year] BED: DIS: STATUS: DEP [facility] TLOC: SPEC #: [id number] RECD: 06/11/20 STATUS: CAROLINE LEVI #: [id number] KIT: 06/11/20 [facility] DR: Stu Jones MD ENTERED: 06/11/20 SP TYPE: SURG OTHR DR: ORDERED: PATHGM3, PATH SPEC, H E STAIN HISTOLOGY: TISSUE ID BLK PCS TRAVIS LEV / PROCEDURE DISPOSITION ____ ___ ___ ___ ___ GALLBLADDER A 2 1 TISSUES: A. GALLBLADDER - Gallbladder CLINICAL HISTORY Chronic cholecystitis. 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 The serosa is smooth green-brown. The lumen contains jose-colored bile which is strained revealing multiple spherical and friable yellow calculi varying from less than 0.1 cm up to 0.3 cm in greatest dimension; their centers are yellow. The gallbladder mucosa is velvety brown with extensive yellow stippling. The wall is up to 0.4 cm thick. The cystic duct has been ligated and contains a 0.1 cm in greatest dimension calculus. Adjacent to the duct is a 1.0 x 0.5 x 0.3 cm pale vogt lymph node which has a glistening vogt cut surface. Cleaning Machine Operator sections are submitted as follows: A1 - cystic duct margin and adjacent lymph node (bisected); A2 - gallbladder. MD/ph MICROSCOPIC DESCRIPTION Performed. CONTINUED ON NEXT PAGE RUN DATE: 06/16/20 [facility] - LAB PAGE 2 RUN TIME: 0845 Specimen Inquiry RUN USER: INTERFACE SPEC #: [id number] PATIENT: SARAH PADILLA RALPH #[id number] (Continued) --- Signed SIGNATURE ON FILE Rubi Kay MD 06/16/20 0845 END OF REPORT COMPREHENSIVE METABOLIC [id number] 04:55:00 Test Item Value Reference Range Interpretation Comments SODIUM (test code = 138 mmol/L 136-145 N Please n ote: New NA) Reference Range Mar 2020 POTASSIUM (test 3.1 mmol/L 3.5-5.1 L code = K) CHLORIDE (test code 107 mmol/L 98-107 N Please n ote: New = CL) Reference Range Mar 2020 CARBON DIOXIDE 24 mmol/L 20-31 N Please note: New (test code = CO2) Reference Range Mar 2020 GLUCOSE (test code 127 mg/dL 74-106 H Please no te: New = GLU) Reference Range Mar 2020 BLOOD UREA NITROGEN 8 mg/dL 9-23 L Please n ote: New (test code = BUN) Reference Range Mar 2020 GLOMERULAR >=60 max >60 The estimated FILTRATION RATE estimate glomerular (test code = GFR) filtration rate is computed usingpatient ra ce, age (>18), sex, and serum creatinin e. If anyof the ne eded data elements a re missing the Laboratory mikaela ot compute an estimation of t he glomerular filtration rate . CREATININE (test 0.30 mg/dL 0.55-1.02 L Please note : New code = CREAT) Reference Rang e Mar 2020 TOTAL PROTEIN (test 5.1 g/dL 5.7-8.2 L Please n ote: New code = PROT) Reference Range Mar 2020 ALBUMIN (test code 3.3 g/dL 3.2-4.8 N Please no te: New = ALB) Reference Range Mar 2020 CALCIUM (test code 7.7 mg/dL 8.7-10.4 L Please no te: New = CA) Reference Range Mar 2020 BILIRUBIN TOTAL 1.4 mg/dL 0.3-1.2 H Please note: New (test code = BILT) Reference Range Mar 2020 SGOT/AST (test code 19 U/L <34 N Please n ote: New = AST) Reference Range Mar 2020 SGPT/ALT (test code 106 U/L 10-49 H Please n ote: New = ALT) Reference Range Mar 2020 ALKALINE 84 U/L 46-116 N Please note: Ne w PHOSPHATASE (test Reference Range Feb code = ALKP) 2020 [id number] 04:55:00 Test Item Value Reference Range Interpretation Comments LIPASE (test code = 70 U/L 12-53 H Please n ote: New LIP) Reference Range Mar 2020 CBC W/AUTO [id number] 04:42:00 Test Item Value Reference Range Interpretation Comments WHITE BLOOD CELL (test code = 10.6 x10 3/uL 4.8-10.8 N WBC) RED BLOOD CELL (test code = 3.66 x10 6/uL 4.20-5.40 L RBC) HEMOGLOBIN (test code = HGB) 11.3 g/dL 12.0-16.0 L HEMATOCRIT (test code = HCT) 34.0 % 37.0-47.0 L MEAN CELL VOLUME (test code = 92.9 fL 81.0-99.0 N MCV) MEAN CELL HGB (test code = MCH) 30.9 pg 27-31 N MEAN CELL HGB CONCENTRATION 33.2 G/DL 33-36.5 N (test code = MCHC) RED CELL DISTRIBUTION WIDTH 12.6 % 12.9-16.9 L (test code = RDW) PLATELET COUNT (test code = 244 x10 3/uL 150-440 N PLT) MEAN PLATELET VOLUME (test code 11.6 fL 8.9-12.4 N = MPV) NEUTROPHIL % (test code = NT%) 68.0 % 42.2-75.2 N LYMPHOCYTE % (test code = LY%) 19.3 % 20.5-51.1 L MONOCYTE % (test code = MO%) 9.8 % 1.7-9.3 H EOSINOPHIL % (test code = EO%) 1.8 % 0.0-7.0 N BASOPHIL % (test code = BA%) 0.4 % 0-2.5 N NEUTROPHIL # (test code = NT#) 7.18 x10 3/uL 1.80-7.70 N LYMPHOCYTE # (test code = LY#) 2.04 x10 3/uL 1.00-4.80 N MONOCYTE # (test code = MO#) 1.03 x10 3/uL 0.00-0.80 H EOSINOPHIL # (test code = EO#) 0.19 x10 3/uL 0.00-0.45 N BASOPHIL # (test code = BA#) 0.04 x10 3/uL 0.0-0.20 N COMPREHENSIVE METABOLIC [id number] 05:53:00 Test Item Value Reference Range Interpretation Comments SODIUM (test code = 139 mmol/L 136-145 N Please n ote: New NA) Reference Range Mar 2020 POTASSIUM (test 3.4 mmol/L 3.5-5.1 L code = K) CHLORIDE (test code 108 mmol/L 98-107 H Please n ote: New = CL) Reference Range Mar 2020 CARBON DIOXIDE 23 mmol/L 20-31 N Please note: New (test code = CO2) Reference Range Mar 2020 GLUCOSE (test code 96 mg/dL 74-106 N Please no te: New = GLU) Reference Range Mar 2020 BLOOD UREA NITROGEN 10 mg/dL 9-23 N Please n ote: New (test code = BUN) Reference Range Mar 2020 GLOMERULAR >=60 max >60 The estimated FILTRATION RATE estimate glomerular (test code = GFR) filtration rate is computed usingpatient ra ce, age (>18), sex, and serum creatinin e. If anyof the ne eded data elements a re missing the Laboratory mikaela ot compute an estimation of t he glomerular filtration rate . CREATININE (test 0.30 mg/dL 0.55-1.02 L Please note : New code = CREAT) Reference Rang e Mar 2020 TOTAL PROTEIN (test 5.2 g/dL 5.7-8.2 L Please n ote: New code = PROT) Reference Range Mar 2020 ALBUMIN (test code 3.3 g/dL 3.2-4.8 N Please no te: New = ALB) Reference Range Mar 2020 CALCIUM (test code 8.2 mg/dL 8.7-10.4 L Please no te: New = CA) Reference Range Mar 2020 BILIRUBIN TOTAL 1.5 mg/dL 0.3-1.2 H Please note: New (test code = BILT) Reference Range Mar 2020 SGOT/AST (test code 22 U/L <34 N Please n ote: New = AST) Reference Range Mar 2020 SGPT/ALT (test code 138 U/L 10-49 H Please n ote: New = ALT) Reference Range Mar 2020 ALKALINE 86 U/L 46-116 N Please note: Ne w PHOSPHATASE (test Reference Range Feb code = ALKP) 2020 [id number] 05:53:00 Test Item Value Reference Range Interpretation Comments LIPASE (test code = 97 U/L 12-53 H Please n ote: New LIP) Reference Range Mar 2020 CBC W/AUTO [id number] 05:17:00 Test Item Value Reference Range Interpretation Comments WHITE BLOOD CELL (test code = 12.2 x10 3/uL 4.8-10.8 H WBC) RED BLOOD CELL (test code = 3.94 x10 6/uL 4.20-5.40 L RBC) HEMOGLOBIN (test code = HGB) 12.2 g/dL 12.0-16.0 HEMATOCRIT (test code = HCT) 36.9 % 37.0-47.0 L MEAN CELL VOLUME (test code = 93.7 fL 81.0-99.0 N MCV) MEAN CELL HGB (test code = MCH) 31.0 pg 27-31 N MEAN CELL HGB CONCENTRATION 33.1 G/DL 33-36.5 N (test code = MCHC) RED CELL DISTRIBUTION WIDTH 12.7 % 12.9-16.9 L (test code = RDW) PLATELET COUNT (test code = 202 x10 3/uL 150-440 N PLT) MEAN PLATELET VOLUME (test code 11.8 fL 8.9-12.4 N = MPV) NEUTROPHIL % (test code = NT%) 75.5 % 42.2-75.2 H LYMPHOCYTE % (test code = LY%) 11.9 % 20.5-51.1 L MONOCYTE % (test code = MO%) 10.0 % 1.7-9.3 H EOSINOPHIL % (test code = EO%) 1.6 % 0.0-7.0 N BASOPHIL % (test code = BA%) 0.3 % 0-2.5 N NEUTROPHIL # (test code = NT#) 9.25 x10 3/uL 1.80-7.70 H LYMPHOCYTE # (test code = LY#) 1.45 x10 3/uL 1.00-4.80 N MONOCYTE # (test code = MO#) 1.22 x10 3/uL 0.00-0.80 H EOSINOPHIL # (test code = EO#) 0.19 x10 3/uL 0.00-0.45 N BASOPHIL # (test code = BA#) 0.04 x10 3/uL 0.0-0.20 N - CTA CHEST FOR [id number] 20:52:00 [facility] 1990 Sex: FPatient Name: SARAH PADILLA Unit No: [id number] EXAMS: CPT CODE: [id number] [place] [address] [place] chest with contrast (PE protocol) Location code:J9 HISTORY: Shortness of breath COMPARISON: None available TECHNIQUE: Multiple axial slices through the chest were obtained during 100 mL of Isovue 370contrast administration for evaluation of the pulmonary arteries. Oblique reconstructions were performed and evaluated. CT imaging performed at this location utilizes radiation dose optimization techniques which include one or more of the following: -Automated exposure control -Adjustment of the mA and/or kV according to patient size -Use of iterative reconstruction technique CT Radiation Dose DLP mGy-cm FINDINGS: The exam is nondiagnostic for evaluation of pulmonary artery embolus secondary to poor pulmonary artery trunk opacification and motion artifact. Visualized aorta is normal in caliber. No evidence of aortic dissection.Mild bilateral pleural effusions with atelectasis. Mild bilateral groundglassopacities and prominent interstitial lung markings are noted. No pneumothorax. The heart andpulmonary vasculature is normal. In the abdomen, free fluid is noted. A mild amount offree air is noted in the abdomen. Postsurgical changes are noted at the stomach. A partiallyvisualized right upper quadrant gallbladder fossa drain is noted. IMPRESSION: 1. The exam is nondiagnostic for pulmonary artery embolus. 2. Mild bilateral pleural effusions and findings suggestive of CHF. 3. Free air free fluid is noted in the abdomen with surgical drain. Please clinically correlate with surgical history. at 2051 Reported andsigned by: LOLLY TORRES M.D. CC: Chuck Garcia MD; Aditya Cintron MD; Stu Jones MD Technologist: SARAI CHANDRA RT( R),(CT) CTDI: 44.89 DLP: 738 Trscr Dt/Tm: 06/14/2020(2051) by:[email or web address] Printed Date/Time: 06/14/2020 (2055) Name: SARAH PADILLA [facility] Phys: Aditya Guzman [address] : 1990 Age: 29 Sex: [place] [address] Loc: P.0617 1 ExamDate: 06/14/2020 Status: ADM IN PH: FAX: PAGE 1 Signed [id number] 19:22:00 Test Item Value Reference Range Interpretation Comments TROPONIN-I (test < 2.5 pg/mL 27.36-66.23 L Please note : Units and code = TROPI) Reference Rang e have changedFeb 3, 2 021 Covid 19 InHouse [id number] 19:20:00 Test Item Value Reference Range Interpretation Comments Covid 19 Negative Negative A negative resu lt does not InHouse NTX preclude the SA RS-COV-2 (test code = viralinfection and should not be [id number]) used as the so le basis forpatient dee gement decisions. Negative result s must becombined with clinical o bservations, patient history , andepidemiologi tory information. Viral levels in clinicalsamples below the detec tion limit of the assay could shabnam d tonegative results. This t est was performed using the [employer] SmartTM COVID-19 PCRassay. This test was developed and i ts performancechar acteristics were determined by [facility]. Thi s test has notbeen FDA chris ared or approved. This test is au thorized by theFDA under Em ergency Use Authorization(E UA). The EUA willremain in e ffect unless it is terminated o r revoked by FDA . Testing ladonna eters have not been validated for screeningasympt omatic patients. This test was v alidated according to e FDA's guidancedocumen t "Policy for Diagnostics segundo ting in LaboratoriesCer tified to Perform High Complexity Testing under CLIA". First test? YesEmployed in Healthcare? NoSymptomatic as defined by CDC? NoHospitalized due to COVID?NoIn ICU due to COVID? NoResident in a congregate care setting? No? NoAge at collection: [id number] 18:10:00 Test Item Value Reference Range Interpretation Comments D-DIMER (test 5538 ng/mL 0-500 H THE DDIMER MET HOD IS USED IN code = DDIMER) THE EXCLUSION OF DEEP VEINTHROMBOSIS AND/OR PULMONARY EMBOL ISM AND THE CLINICAL CUT-OF F VALUE FOR EXCLUSION (500 NG/ML FEU) OF THESE CONDITION SIS VALIDATED BY THE MANUFACT URER OF THE METHOD. A NEGAT CECILE DDIMER RESULT WHEN COM BINED WITH A CLINICALASSESSM ENT OF LOW PRETEST PROBABI LITY HAS BEEN SHOWN TO HAVEA HIGH NEGATIVE PREDICTIVE VALU E OF DVT OR PE. D-DIMER ROBERT UES >500 ng/mL ARE NOT DIAGNOS TIC FOR DVT,PEOR DIC WI THOUT OTHER CONFIRMATORY TE STS AND APPROPRIATECLIN ICAL EVALUATIONS. CBC W/AUTO [id number] 07:17:00 Test Item Value Reference Range Interpretation Comments WHITE BLOOD CELL (test code = 14.0 x10 3/uL 4.8-10.8 H WBC) RED BLOOD CELL (test code = 4.49 x10 6/uL 4.20-5.40 N RBC) HEMOGLOBIN (test code = HGB) 14.0 g/dL 12.0-16.0 HEMATOCRIT (test code = HCT) 43.3 % 37.0-47.0 N MEAN CELL VOLUME (test code = 96.4 fL 81.0-99.0 N MCV) MEAN CELL HGB (test code = 31.2 pg 27-31 H MCH) MEAN CELL HGB CONCENTRATION 32.3 G/DL 33-36.5 L (test code = MCHC) RED CELL DISTRIBUTION WIDTH 13.2 % 12.9-16.9 N (test code = RDW) PLATELET COUNT (test code = 239 x10 3/uL 150-440 N PLT) MEAN PLATELET VOLUME (test 11.7 fL 8.9-12.4 N code = MPV) NEUTROPHIL % (test code = NT%) 78.8 % 42.2-75.2 H LYMPHOCYTE % (test code = LY%) 10.6 % 20.5-51.1 L MONOCYTE % (test code = MO%) 9.4 % 1.7-9.3 H EOSINOPHIL % (test code = EO%) 0.2 % 0.0-7.0 N BASOPHIL % (test code = BA%) 0.4 % 0-2.5 N NEUTROPHIL # (test code = NT#) 11.00 x10 3/uL 1.80-7.70 H LYMPHOCYTE # (test code = LY#) 1.48 x10 3/uL 1.00-4.80 N MONOCYTE # (test code = MO#) 1.32 x10 3/uL 0.00-0.80 H EOSINOPHIL # (test code = EO#) 0.03 x10 3/uL 0.00-0.45 N BASOPHIL # (test code = BA#) 0.06 x10 3/uL 0.0-0.20 N COMPREHENSIVE METABOLIC [id number] 07:03:00 Test Item Value Reference Range Interpretation Comments SODIUM (test code = NA) mmol/L 136-145 POTASSIUM (test code = K) 3.9 mmol/L 3.5-5.1 N CHLORIDE (test code = CL) mmol/L 98-107 CARBON DIOXIDE (test code = CO2) mmol/L 20-31 GLUCOSE (test code = GLU) mg/dL 74-106 BLOOD UREA NITROGEN (test code = mg/dL 9-23 BUN) GLOMERULAR FILTRATION RATE (test >60 code = GFR) CREATININE (test code = CREAT) mg/dL 0.55-1.02 TOTAL PROTEIN (test code = PROT) g/dL 5.7-8.2 ALBUMIN (test code = ALB) g/dL 3.2-4.8 CALCIUM (test code = CA) mg/dL 8.7-10.4 BILIRUBIN TOTAL (test code = BILT) mg/dL 0.3-1.2 SGOT/AST (test code = AST) U/L <34 SGPT/ALT (test code = ALT) U/L 10-49 ALKALINE PHOSPHATASE (test code = U/L 46-116 ALKP) [id number] 07:03:00 Test Item Value Reference Range Interpretation Comments LIPASE (test code = 228 U/L 12-53 H Please n ote: New LIP) Reference Range Mar 2020 COMPREHENSIVE METABOLIC [id number] 07:03:00 Test Item Value Reference Range Interpretation Comments SODIUM (test code = 139 mmol/L 136-145 N Please n ote: New NA) Reference Range Mar 2020 POTASSIUM (test 3.9 mmol/L 3.5-5.1 N code = K) CHLORIDE (test code 111 mmol/L 98-107 H Please n ote: New = CL) Reference Range Mar 2020 CARBON DIOXIDE 19 mmol/L 20-31 L Please note: New (test code = CO2) Reference Range Mar 2020 GLUCOSE (test code 101 mg/dL 74-106 N Please no te: New = GLU) Reference Range Mar 2020 BLOOD UREA NITROGEN 8 mg/dL 9-23 L Please n ote: New (test code = BUN) Reference Range Mar 2020 GLOMERULAR >=60 max >60 The estimated FILTRATION RATE estimate glomerular (test code = GFR) filtration rate is computed usingpatient ra ce, age (>18), sex, and serum creatinin e. If anyof the ne eded data elements a re missing the Laboratory mikaela ot compute an estimation of t he glomerular filtration rate . CREATININE (test 0.40 mg/dL 0.55-1.02 L Please note : New code = CREAT) Reference Rang e Mar 2020 TOTAL PROTEIN (test 4.7 g/dL 5.7-8.2 L Please n ote: New code = PROT) Reference Range Mar 2020 ALBUMIN (test code 3.2 g/dL 3.2-4.8 N Please no te: New = ALB) Reference Range Mar 2020 CALCIUM (test code 8.0 mg/dL 8.7-10.4 L Please no te: New = CA) Reference Range Mar 2020 BILIRUBIN TOTAL 2.0 mg/dL 0.3-1.2 H Please note: New (test code = BILT) Reference Range Mar 2020 SGOT/AST (test code 56 U/L <34 H Please n ote: New = AST) Reference Range Mar 2020 SGPT/ALT (test code 241 U/L 10-49 H Please n ote: New = ALT) Reference Range Mar 2020 ALKALINE 109 U/L 46-116 N Please note: Ne w PHOSPHATASE (test Reference Range Feb code = ALKP) 2020 [id number] 07:03:00 Test Item Value Reference Range Interpretation Comments LIPASE (test code = 228 U/L 12-53 H Please n ote: New LIP) Reference Range Mar 2020 CBC W/AUTO [id number] 06:37:00 Test Item Value Reference Range Interpretation Comments WHITE BLOOD CELL (test code = 14.0 x10 3/uL 4.8-10.8 H WBC) RED BLOOD CELL (test code = 4.49 x10 6/uL 4.20-5.40 N RBC) HEMOGLOBIN (test code = HGB) 14.0 g/dL 12.0-16.0 HEMATOCRIT (test code = HCT) 43.3 % 37.0-47.0 N MEAN CELL VOLUME (test code = 96.4 fL 81.0-99.0 N MCV) MEAN CELL HGB (test code = 31.2 pg 27-31 H MCH) MEAN CELL HGB CONCENTRATION 32.3 G/DL 33-36.5 L (test code = MCHC) RED CELL DISTRIBUTION WIDTH 13.2 % 12.9-16.9 N (test code = RDW) PLATELET COUNT (test code = 239 x10 3/uL 150-440 N PLT) MEAN PLATELET VOLUME (test 11.7 fL 8.9-12.4 N code = MPV) NEUTROPHIL % (test code = NT%) 78.8 % 42.2-75.2 H LYMPHOCYTE % (test code = LY%) 10.6 % 20.5-51.1 L MONOCYTE % (test code = MO%) 9.4 % 1.7-9.3 H EOSINOPHIL % (test code = EO%) 0.2 % 0.0-7.0 N BASOPHIL % (test code = BA%) 0.4 % 0-2.5 N NEUTROPHIL # (test code = NT#) 11.00 x10 3/uL 1.80-7.70 H LYMPHOCYTE # (test code = LY#) 1.48 x10 3/uL 1.00-4.80 N MONOCYTE # (test code = MO#) 1.32 x10 3/uL 0.00-0.80 H EOSINOPHIL # (test code = EO#) 0.03 x10 3/uL 0.00-0.45 N BASOPHIL # (test code = BA#) 0.06 x10 3/uL 0.0-0.20 N - US NEEDLE [id number] 20:18:00 [facility] 1990 Sex: FPatient Name: SARAH PADILLA Unit No: [id number] EXAMS: CPT CODE: [id number] US NEEDLE PLACEMENT 94488 EXAMINATION: PERCUTANEOUS DRAINAGE. LOCATION: H39. HISTORY: 29-year-old female with recent cholecystectomy complicated by biliary leak, biloma, and SIRS. SEDATION: Under my supervision, Versed and Fentanyl were administered intravenously for moderate sedation. Pulse oximetry, heart rate, and BP were continuously monitored by an independent trained observer present. I spent 20 minutes of face toface sedation time with the patient. RADIATION DOSE: Total reference air kerma 63.6 mGy. ANTIBIOTICS: Yes. The patient was already receiving antibiotics so no additional antibiotic was given. TECHNIQUE: The risks, benefits, and alternatives were discussed and informed consent was obtained. Prior to beginning the procedure, UniversalProtocol was used to confirm the patient's identity and planned procedure. Maximum sterile barriers including cap, mask, hand hygiene, sterile gloves, sterile gown, large sterile drape and cutaneous antisepsis were used. The skin overlying the fluid collection in the right upper quadrant was sterilely prepped, draped, and infiltrated with lidocaine. The targeted collection was then accessed with a micropuncture needle using imaging guidance which included ultrasound and fluoroscopy. Contrast was injected to confirm needle placement. A guidewire was advanced and coiled within the collection before dilating the tract to 10 [place]. A 10-[place] loop catheter was then advanced over the guidewire, formed in the collection, and secured in place with a stitch. The catheter was connected to gravity drainage. A sterile dressing was applied. A sample of the fluid was sent for culture. ESTIMATED BLOOD LOSS: Less than 30 milliliters. COMPLICATIONS: None. DISCHARGED TO: Inpatient unit. FINDINGS: Images from the procedure revealed a loculated collection in the right upper quadrant. The fluid appeared as dark bilious fluid. Approximately 10 cc was drained at the time of the procedure. Name: SARAH PADILLA [facility] Phys: Michael Saucedo MD [address] DOB: 1990 Age: 29 Sex: [place] [address] Loc: P.0617 1 Exam Date: 06/13/2020 Status: ADM IN PH: FAX: PAGE 1 Signed Report (CONTINUED) Patient Name: SARAH PADILLA Unit No: [id number] EXAMS: CPT CODE: [id number] US NEEDLE PLACEMENT 18524 <Continued> IMPRESSION: Successful image guided drainage of the right upper quadrant biloma. PLAN: This tube should be flushed with saline 8 mL twice per day for the next 3 days. If patient isdischarged prior to catheter removal, follow-up drain check with Interventional Radiology is recommended in 10-14 days. at 2018 Reported and signed by: EMIR JUNIOR M.D. CC: Chuck Garcia MD; Dain Suazo MD; Stu Jones MD Technologist: Malvin Rosado Time: DAP (Gy m2): Air Kerma (mGy): Trscr Dt/Tm: 06/13/2020 (2017) by:[email or web address] Printed Date/Time: 06/13/2020 (2021) Name: MAKSARAH [facility] Phys: Dain Saucedo MD [address] DOB: 1990 Age: 29 Sex: [place] [id number] Loc: P.0617 1 Exam Date: 06/13/2020 Status: ADM IN PH: FAX: PAGE 2 Signed Report- SP PERC DRAIN 2020-06-13 20:18:00 [facility] : 1990 Sex: FPatient Name: SARAH PADILLA Unit No: [id number] EXAMS: CPT CODE: [id number] SP PERC DRAIN 18051 EXAMINATION: PERCUTANEOUS DRAINAGE. LOCATION: H39. HISTORY: 29-year-old female with recent cholecystectomy complicated by biliary leak, biloma, and SIRS. SEDATION: Under my supervision, Versed and Fentanyl were administered intravenously for moderate sedation. Pulse oximetry, heart rate, and BP were continuously monitored by an independent trained observer present. I spent 20 minutes of face toface sedation time with the patient. RADIATION DOSE: Total reference air kerma 63.6 mGy. ANTIBIOTICS: Yes. The patient was already receiving antibiotics so no a dditional antibiotic was given. TECHNIQUE: The risks, benefits, and alternatives were discussed and informed consent was obtained. Prior to beginning the procedure, UniversalProtocol was used to confirm the patient's identity and planned procedure. Maximum sterile barriers including cap, mask, hand hygiene, sterile gloves, sterile gown, large sterile drape and cutaneous antisepsis were used. The skin overlying the fluid collection in the right upper quadrant was sterilely prepped, draped, and infiltrated with lidocaine. The targeted collection was then accessed with a micropuncture needle using imaging guidance which included ultrasound and fluoroscopy. Contrast was injected to confirm needle placement. A guidewire was advanced and coiled within the collection before dilating the tract to 10 [place]. A 10-[place] loop catheter was then advanced over the guidewire, formed in the collection, and secured in place with a stitch. The catheter was connected to gravity drainage. A sterile dressing was applied. A sample of the fluid was sent for culture. ESTIMATED BLOOD LOSS: Less than 30 milliliters. COMPLICATIONS: None. DISCHARGED TO: Inpatient unit. FINDINGS: Images from the procedure revealed a loculated collection in the right upper quadrant. The fluid appeared as dark bilious fluid. Approximately 10 cc was drained at the time of the procedure. Name: SARAH PADILLA [facility] Phys: ANTOLIN Michael Suazo MD [address] DOB: 1990 Age: 29 Sex: [place] [address] Loc: P.0617 1 Exam Date:06/13/2020 Status: ADM IN PH: FAX: PAGE 1 Signed Report (CONTINUED) Patient Name: SARAH PADILLA Unit No: [id number] EXAMS: CPT CODE: [id number] SP PERC DRAIN 51555 <Continued> IMPRESSION: Successful image guided drainage of the right upper quadrant biloma. PLAN: This tube should be flushed with saline 8 mL twice per day for the next 3 days. If patient isdischarged prior to catheter removal, follow-up drain check with Interventional Radiology isrecommended in 10-14 days. at 2018 Reported and signed by: EMIR JUNIOR M.D. CC: Chuck Garcia MD; Dain Suazo MD; Stu Jones MD Technologist: Malvin Rosado Time: DAP (Gy m2): Air Kerma (mGy): Trscr Dt/Tm: 06/13/2020 (2017) by:[email or web address] Printed Date/Time: 06/13/2020 (2021) Name: SARAH PADILLA [facility] Phys: ANTOLIN Dain Suazo MD [address] DOB: 1990 Age: 29 Sex: [place] [facility] [place] [address] Loc: P.0617 1 Exam Date: 06/13/2020 Status: ADM IN PH: FAX: PAGE 2 Signed ReportCOVID 19 Asymptomatic IH [id number] 16:52:00 Test Item Value Reference Range Interpretation Comments COVID 19 NEGATIVE NEGATIVE Negative result s, from Asymptomatic IH AG patients with symptom (test code = onset beyondfiv e days, COVNONPUIAG) should be treat ed as presumptive and confirmationwit h a molecular assay , if necessary for patientmanageme nt, may be performed. Nega tive results do not ruleout COVID-19 and sh ould not be used as the sole basis fortreatment or patient management deci sions, includinginfect ion control decisio ns. Negative result s should beconsidered in the context of a pa tient's recent exposure s,history and the presenc e of clinical signs and symptomsconsist ent with COVID-19. - XR FLUOROSCOPY 0-60 [id number] 10:07:00 [facility] : 1990 Sex: FPatient Name: SARAH PADILLA Unit No: [id number] EXAMS: CPT CODE: [id number] XR FLUOROSCOPY 0- 60 MIN 27809 Clinical history: ERCP Location: A1. FINDINGS: 20 spot fluoroscopic intraoperative images are submitted from ERCP. The patient is status post cholecystectomy. There appears to be diffuse mild dilatation of the common bile duct and proximal intrahepatic ducts. There is extravasation of contrast lateral to the gallbladder fossa consistent with bile leak. Please refer to the operative report. A total of2 minutes, 1 seconds intraoperative fluoroscopy is utilized. Dose = 101 mGy. Impression: Intraoperative fluoroscopy. at 1007 Reported and signed by: TIFF WEAVER M.D. CC: Chuck Garcia MD; Stu Jones MDTechnologist: Edwin Rosado Time: DAP (Gy m2): Air Kerma (mGy): Trscr Dt/Tm: 06/13/2020 (1007) by:[email or web address] Printed Date/Time: 06/13/2020 (1010) Name: SARAH PADILLA [facility] Phys: Chuck [place] MD [address] : 1990 Age: 29 Sex: F [place], [place] [address] Loc: JENNIFER 10 Exam Date: 06/13/2020 Status: ADM IN PH: FAX: PAGE 1 Signed ReportPROTHROMBIN [id number] 06:48:00 Test Item Value Reference Range Interpretation Comments PROTHROMBIN TIME 12.7 SECONDS 10.3-12.9 N PATIENT (test code = PTP) INTERNATIONAL 1.12 INR UNIT 0.9-1.11 H The INR is us eful only NORMAL RATIO (test for monit oring code = INR) anticoagulant therapy.It may be unreliable in t he initial phase o f antigoagulation and in unstable patien ts. Indication for Anticoagulation Recommend ed INR 1. Prevention o f venous thomboembolism 2.0-3.0in high -risk patients; treat ment of venousthrombosi s and pulmonary embol ism aftera course o f heparin; preven tion of systemicembolis m in a variety of cond itions, including atria l fibrillation an d prothetic tissu e heart valves, 2. Pros thetic mechanical hear t valves; 2.5-3.5recurren t systemic emboli sm. THROMBOPLASTIN TIME [id number] 06:48:00 Test Item Value Reference Range Interpretation Comments THROMBOPLASTIN TIME 30.5 SECONDS 23.8-34.8 N INTERPRE TATIVE PARTIAL (test code = DATA:Th erapeutic PTT) range: Unfractionated heparin:55 - 80 seconds Argatroban:1.5 to 3 times the basel ine PTT LACTIC [id number] 06:40:00 Test Item Value Reference Range Interpretation Comments LACTIC ACID (test code = LACT) 0.60 mmol/L 0.5-2.0 N COMPREHENSIVE METABOLIC [id number] 06:20:00 Test Item Value Reference Range Interpretation Comments SODIUM (test code = 137 mmol/L 136-145 N Please n ote: New NA) Reference Range Mar 2020 POTASSIUM (test 4.1 mmol/L 3.5-5.1 N code = K) CHLORIDE (test code 108 mmol/L 98-107 H Please n ote: New = CL) Reference Range Mar 2020 CARBON DIOXIDE 22 mmol/L 20-31 N Please note: New (test code = CO2) Reference Range Mar 2020 GLUCOSE (test code 134 mg/dL 74-106 H Please no te: New = GLU) Reference Range Mar 2020 BLOOD UREA NITROGEN 8 mg/dL 9-23 L Please n ote: New (test code = BUN) Reference Range Mar 2020 GLOMERULAR >=60 max >60 The estimated FILTRATION RATE estimate glomerular (test code = GFR) filtration rate is computed usingpatient ra ce, age (>18), sex, and serum creatinin e. If anyof the ne eded data elements a re missing the Laboratory mikaela ot compute an estimation of t he glomerular filtration rate . CREATININE (test 0.50 mg/dL 0.55-1.02 L Please note : New code = CREAT) Reference Rang e Mar 2020 TOTAL PROTEIN (test 6.1 g/dL 5.7-8.2 N Please n ote: New code = PROT) Reference Range Mar 2020 ALBUMIN (test code 4.1 g/dL 3.2-4.8 N Please no te: New = ALB) Reference Range Mar 2020 CALCIUM (test code 8.9 mg/dL 8.7-10.4 N Please no te: New = CA) Reference Range Mar 2020 BILIRUBIN TOTAL 2.9 mg/dL 0.3-1.2 H Please note: New (test code = BILT) Reference Range Mar 2020 SGOT/AST (test code 259 U/L <34 H Please n ote: New = AST) Reference Range Mar 2020 SGPT/ALT (test code 553 U/L 10-49 H Please n ote: New = ALT) Reference Range Mar 2020 ALKALINE 189 U/L 46-116 H Please note: Ne w PHOSPHATASE (test Reference Range Feb code = ALKP) 2020 [id number] 06:20:00 Test Item Value Reference Range Interpretation Comments PHOSPHOROUS (test code 3.6 mg/dL 2.4-5.1 N Pleas e note: New = PHOS) Reference Range Mar 2020 BILIRUBIN [id number] 06:20:00 Test Item Value Reference Range Interpretation Comments BILIRUBIN DIRECT (test 1.6 mg/dL <0.3 H Pleas e note: New code = BILD) Reference Range Mar 2020 [id number] 06:20:00 Test Item Value Reference Range Interpretation Comments AMYLASE (test code = 503 U/L 30-118 H Please note: New KANE) Reference Range Mar 2020 [id number] 06:20:00 Test Item Value Reference Range Interpretation Comments LIPASE (test code = 459 U/L 12-53 H Please n ote: New LIP) Reference Range Mar 2020 [id number] 06:20:00 Test Item Value Reference Range Interpretation Comments MAGNESIUM (test code = 1.7 mg/dL 1.6-2.6 N Pleas e note: New MAG) Reference Range Mar 2020 C REACTIVE [id number] 06:20:00 Test Item Value Reference Range Interpretation Comments C REACTIVE PROTEIN 56 mg/L <10 H Please no te: New (test code = CRP) Reference Range Mar 2020 - XR CHEST 1 [id number] 06:10:00 [facility] : 1990 Sex: FPatient Name: SARAH PADILLA Unit No: [id number] EXAMS: CPT CODE: [id number] XR CHEST 1 V [id number] - XR CHEST 1 V, 06/13/2020 4:27 AM Reason For Examination: shortness of breath, hypoxia r/o infection Comparison: None Location: R16 Findings LUNGS: No definite pulmonary edema or consolidation, although exam findings limited by low lung volumes PLEURA: No ple ural effusions CARDIOMEDIASTINAL SILHOUETTE Unremarkable IMPRESSION: No plain film evidence of acute cardiopulmonary abnormality within the given limitations above at 0610 Reported and signed by: HARLEEN GU M.D. CC: Chuck Garcia MD; Stu Jones MD Technologist: Марина Rosado Time: DAP (Gy m2): Air Kerma (mGy): Trscr Dt/Tm: 06/13/2020 (0610) by:[email or web address] Printed Date/Time: 06/13/2020 (0614) Name: SARAH PADILLA [facility] Phys: Chuck Davila MD [address] :1990 Age: 29 Sex: F [place] [address] Loc: PLuisERMS 10 Exam Date: 06/13/2020 Status: ADM IN PH: FAX: PAGE 1 Signed ReportCBC W/AUTO [id number] 05:56:00 Test Item Value Reference Range Interpretation Comments WHITE BLOOD CELL (test code = 10.3 x10 3/uL 4.8-10.8 N WBC) RED BLOOD CELL (test code = 5.16 x10 6/uL 4.20-5.40 N RBC) HEMOGLOBIN (test code = HGB) 15.9 g/dL 12.0-16.0 N HEMATOCRIT (test code = HCT) 48.6 % 37.0-47.0 H MEAN CELL VOLUME (test code = 94.2 fL 81.0-99.0 N MCV) MEAN CELL HGB (test code = MCH) 30.8 pg 27-31 N MEAN CELL HGB CONCENTRATION 32.7 G/DL 33-36.5 L (test code = MCHC) RED CELL DISTRIBUTION WIDTH 12.8 % 12.9-16.9 L (test code = RDW) PLATELET COUNT (test code = 303 x10 3/uL 150-440 N PLT) MEAN PLATELET VOLUME (test code 12.2 fL 8.9-12.4 N = MPV) NEUTROPHIL % (test code = NT%) 75.6 % 42.2-75.2 H LYMPHOCYTE % (test code = LY%) 13.1 % 20.5-51.1 L MONOCYTE % (test code = MO%) 10.7 % 1.7-9.3 H EOSINOPHIL % (test code = EO%) 0.0 % 0.0-7.0 N BASOPHIL % (test code = BA%) 0.2 % 0-2.5 N NEUTROPHIL # (test code = NT#) 7.78 x10 3/uL 1.80-7.70 H LYMPHOCYTE # (test code = LY#) 1.35 x10 3/uL 1.00-4.80 N MONOCYTE # (test code = MO#) 1.10 x10 3/uL 0.00-0.80 H EOSINOPHIL # (test code = EO#) 0.00 x10 3/uL 0.00-0.45 N BASOPHIL # (test code = BA#) 0.02 x10 3/uL 0.0-0.20 N - MRI [id number] 03:01:00 [facility] : 1990 Sex: FPatient Name: SARAH PADILLA Unit No: [id number] EXAMS: CPT CODE: [id number] MRI MRCP 20366 EXAMINATION: - MRI MRCP LOCATION: H61 HISTORY: Postoperative elevated LFT. Rule out cholangitis. COMPARISON: None. TECHNIQUE: Multiplanar, multisequence magnetic resonance images of the abdomen were obtained without intravenous contrast with additional MRCP images obtained. FINDINGS: LIVER: The liver has normal signal intensity. No focal lesion or mass. There is mild periportal edema throughout the left right hepatic lobes. There is no intrahepatic biliary dilatation. There is no hepatic abscess. BILIARY: Interval cholecystectomy. There is a 5.2 x 4.0 x 5.0 cm (AP x TV x SI) heterogeneous fluid collection within the gallbladder fossa. The common bile duct diameter is normal and measures up to 7 mm. There are no filling defects within the common bile duct. No areas of stricturing or wall thickening noted. There is no intrahepatic biliary dilatation. PANCREAS: The pancreatic parenchyma appears normal. There is no mass, peripancreatic edema or ductal dilatation. SPLEEN: Normal. ADRENALS: Normal. KIDNEYS: No hydronephrosis or mass in the imaged portion of the kidneys. PERITONEUM AND RETROPERITONEUM: Small volume free fluid surrounds the liver and extends inferiorly to the right paracolic gutter. No retroperitoneal fluid collection. LYMPH NODES: No upper abdominal lymphadenopathy. VESSELS: No AAA. Normal flow-void within the main portal vein Bowel: No small bowel dilatation or bowel wall thickening. No colonic dilatation. BONES AND SOFT TISSUES: Unremarkable. IMPRESSION: 1. Common bile duct and intrahepatic ducts are normal in diameter. Name: SARAH PADILLA [facility] Phys: Chuck Davila MD [address] : 1990 Age: 29 Sex: [place] [address] Loc: P.ERMS 10 Exam Date: 06/12/2020 Status: ADM IN PH: FAX: PAGE 1 Signed Report (CONTINUED) Patient Name: SARAH PADILLA Unit No: [id number] EXAMS: CPT CODE: [id number] MRI MRCP 58035 <Continued> There is no stricture, filling defects or wall thickening to suggests cholangitis or choledocholithiasis. 2. Interval cholecystectomy. 5.2 cm heterogeneous fluid collection in the gallbladder fossa may reflect a postoperative seroma, bile leak or abscess. MRCP may be helpful to exclude of bile leak. 3. Small amount of perihepatic free fluid and nonspecific mild periportal edema. at 0301 Reported and signed by: Vicente Chandra M.D. CC: Chuck Garcia MD; Dawn Jones MD Technologist: Nahid Guerin Trscr Dt/Tm: 06/13/2020 (030) by:[email or web address] Printed Date/Time: 06/13/2020 (303) Name: SARAH PADILLA RALPH [facility] Phys: Chuck Davila MD [address] : 1990 Age: 29 Sex: [place] [address] Loc: JENNIFER 10 Exam Date: 06/12/2020 Status: ADM IN PH: FAX: PAGE 2 Signed ReportUA RFLX MICR CULT IF [id number] 01:04:00 Test Item Value Reference Range Interpretation Comments UA COLOR (test code = YELLOW DISCRIPT YELLOW COLU) UA APPEARANCE (test code = CLEAR DISCRIPT CLEAR APPU) UA GLUCOSE DIPSTICK (test NEGATIVE mg/dL NEGATIVE code = DGLUU) UA BILIRUBIN DIPSTICK MODERATE NEGATIVE A (test code = BILU) UA KETONE DIPSTICK (test TRACE mg/dL NEGATIVE A code = KETU) UA SPECIFIC GRAVITY (test <=1.005 1.005-1.030 A code = SGU) UA BLOOD DIPSTICK (test NEGATIVE NEGATIVE code = KARLA) UA PH DIPSTICK (test code 6.0 5.0-9.0 = LYNETTE) UA PROTEIN DIPSTICK (test NEGATIVE mg/dL NEGATIVE code = PROU) UA UROBILINOGEN DIPSTICK 0.2 mg/dL 0.2-1.0 (test code = URO) UA NITRITE DIPSTICK (test NEGATIVE NEGATIVE code = MARÍA) UA LEUKOCYTE ESTERASE NEGATIVE NEGATIVE DIPSTICK (test code = LEUU) UA WBC (test code = WBCU) NONE SEEN #WBC/HPF 0-2 UA RBC (test code = RBCU) 3-5 #RBC/HPF 0-2 A UA BACTERIA (test code = NONE SEEN /HPF NONE-TRACE BACU) UA SQUAMOUS CELLS (test OCCASIONAL /LPF NONE-TRACE code = SQU) Indication for culture: Dysuria/FrequencySpecimen Description: HAMILTON CATHETERIZED URINEUA RFLX MICR CULT IF [id number] 00:52:00 Test Item Value Reference Range Interpretation Comments UA COLOR (test code = COLU) YELLOW DISCRIPT YELLOW UA APPEARANCE (test code = CLEAR DISCRIPT CLEAR APPU) UA GLUCOSE DIPSTICK (test NEGATIVE mg/dL NEGATIVE code = DGLUU) UA BILIRUBIN DIPSTICK (test MODERATE NEGATIVE A code = BILU) UA KETONE DIPSTICK (test code TRACE mg/dL NEGATIVE A = KETU) UA SPECIFIC GRAVITY (test <=1.005 1.005-1.030 A code = SGU) UA BLOOD DIPSTICK (test code NEGATIVE NEGATIVE = KARLA) UA PH DIPSTICK (test code = 6.0 5.0-9.0 LYNETTE) UA PROTEIN DIPSTICK (test NEGATIVE mg/dL NEGATIVE code = PROU) UA UROBILINOGEN DIPSTICK 0.2 mg/dL 0.2-1.0 (test code = URO) UA NITRITE DIPSTICK (test NEGATIVE NEGATIVE code = MARÍA) UA LEUKOCYTE ESTERASE NEGATIVE NEGATIVE DIPSTICK (test code = LEUU) UA WBC (test code = WBCU) #WBC/HPF 0-2 UA RBC (test code = RBCU) #RBC/HPF 0-2 UA BACTERIA (test code = /HPF NONE-TRACE BACU) UA SQUAMOUS CELLS (test code /LPF NONE-TRACE = SQU) Indication for culture: Dysuria/FrequencySpecimen Description: HAMILTON CATHETERIZED URINECOVID Asymptomatic IH [id number] 11:04:00 Test Item Value Reference Interpretation Comments Range COVID Negative Negative A negative resu lt does not Asymptomatic IH preclude the SARS-COV-2 NTX (test code = viralinfect ion and should not COVNONPUINTX) be used as the sole basis forpatient dee gement decisions. Nega tive results must becombined with clinical observations, p atient history, andepidemiologi tory information. Vi ral levels in clinicalsamples below the detection limit of the assay could lead tone gative results. This test was p erformed using the [employer] Smart TM COVID-19 PCRassay. This test was developed and i ts performancechar acteristics were determined by [facility]. Thi s test has notbeen FDA chris ared or approved. This test is authorized by t [employer] under Emergency Use Authorization(E UA). The EUA willremain in e ffect unless it is terminated o r revoked by FDA . Testing p arameters have not been valida parul for screeningasympt omatic patients. This test was validated accor ding to the FDA's guidanced ocument "Policy for Diagnostics testing in LaboratoriesCer tified to Perform High Co mplexity Testing under C GUS". First test? UnknownEmployed in Healthcare? UnknownSymptomatic as defined by CDC? UnknownHospitalizeddue to COVID? UnknownIn ICU due to COVID? UnknownResident in a congregate care setting? Unknown? UnknownAge at collection: Y COMPREHENSIVE METABOLIC [id number] 13:58:00 Test Item Value Reference Range Interpretation Comments SODIUM (test code = NA) 141 mmol/L 136-145 N Plea se note: New Reference Range Mar 2020 POTASSIUM (test code = 4.0 mmol/L 3.5-5.1 N K) CHLORIDE (test code = 107 mmol/L 98-107 N Please note: New CL) Reference Range Mar 2020 CARBON DIOXIDE (test 26 mmol/L 20-31 N Please note: New code = CO2) Reference Range Mar 2020 GLUCOSE (test code = mg/dL 74-106 GLU) BLOOD UREA NITROGEN 12 mg/dL 9-23 N Please n ote: New (test code = BUN) Reference Range Mar 2020 GLOMERULAR FILTRATION >60 RATE (test code = GFR) CREATININE (test code = mg/dL 0.55-1.02 CREAT) TOTAL PROTEIN (test g/dL 5.7-8.2 code = PROT) ALBUMIN (test code = 4.5 g/dL 3.2-4.8 N Please note: New ALB) Reference Range Mar 2020 CALCIUM (test code = 9.6 mg/dL 8.7-10.4 N Please note: New CA) Reference Range Mar 2020 BILIRUBIN TOTAL (test 0.8 mg/dL 0.3-1.2 N Please note: New code = BILT) Reference Range Mar 2020 SGOT/AST (test code = U/L <34 AST) SGPT/ALT (test code = U/L 10-49 ALT) ALKALINE PHOSPHATASE 66 U/L 46-116 N Please note: New (test code = ALKP) Reference Range Mar 2020 COMPREHENSIVE METABOLIC [id number] 13:58:00 Test Item Value Reference Range Interpretation Comments SODIUM (test code = 141 mmol/L 136-145 N Please n ote: New NA) Reference Range Mar 2020 POTASSIUM (test 4.0 mmol/L 3.5-5.1 N code = K) CHLORIDE (test code 107 mmol/L 98-107 N Please n ote: New = CL) Reference Range Mar 2020 CARBON DIOXIDE 26 mmol/L 20-31 N Please note: New (test code = CO2) Reference Range Mar 2020 GLUCOSE (test code 79 mg/dL 74-106 N Please no te: New = GLU) Reference Range Mar 2020 BLOOD UREA NITROGEN 12 mg/dL 9-23 N Please n ote: New (test code = BUN) Reference Range Mar 2020 GLOMERULAR >=60 max >60 The estimated FILTRATION RATE estimate glomerular (test code = GFR) filtration rate is computed usingpatient ra ce, age (>18), sex, and serum creatinin e. If anyof the ne eded data elements a re missing the Laboratory mikaela ot compute an estimation of t he glomerular filtration rate . CREATININE (test 0.60 mg/dL 0.55-1.02 N Please note : New code = CREAT) Reference Rang e Mar 2020 TOTAL PROTEIN (test 6.7 g/dL 5.7-8.2 N Please n ote: New code = PROT) Reference Range Mar 2020 ALBUMIN (test code 4.5 g/dL 3.2-4.8 N Please no te: New = ALB) Reference Range Mar 2020 CALCIUM (test code 9.6 mg/dL 8.7-10.4 N Please no te: New = CA) Reference Range Mar 2020 BILIRUBIN TOTAL 0.8 mg/dL 0.3-1.2 N Please note: New (test code = BILT) Reference Range Mar 2020 SGOT/AST (test code 31 U/L <34 N Please n ote: New = AST) Reference Range Mar 2020 SGPT/ALT (test code 72 U/L 10-49 H Please n ote: New = ALT) Reference Range Mar 2020 ALKALINE 66 U/L 46-116 N Please note: Ne w PHOSPHATASE (test Reference Range Feb code = ALKP) 2020 UR HCG [id number] 13:31:00 Test Item Value Reference Range Interpretation Comments UR HCG QUAL (test code = HCGQLU) NEGATIVE NEGATIVE PROTHROMBIN [id number] 13:19:00 Test Item Value Reference Range Interpretation Comments PROTHROMBIN TIME 10.8 SECONDS 10.3-12.9 N PATIENT (test code = PTP) INTERNATIONAL 0.96 INR UNIT 0.9-1.11 N The INR is us eful only NORMAL RATIO (test for monit oring code = INR) anticoagulant therapy.It may be unreliable in t he initial phase o f antigoagulation and in unstable patien ts. Indication for Anticoagulation Recommend ed INR 1. Prevention o f venous thomboembolism 2.0-3.0in high -risk patients; treat ment of venousthrombosi s and pulmonary embol ism aftera course o f heparin; preven tion of systemicembolis m in a variety of cond itions, including atria l fibrillation an d prothetic tissu e heart valves, 2. Pros thetic mechanical hear t valves; 2.5-3.5recurren t systemic emboli sm. THROMBOPLASTIN TIME [id number] 13:19:00 Test Item Value Reference Range Interpretation Comments THROMBOPLASTIN TIME 31.5 SECONDS 23.8-34.8 N INTERPRE TATIVE PARTIAL (test code = DATA: erapeutic PTT) range: Unfractionated heparin:55 - 80 seconds Argatroban:1.5 to 3 times the basel ine PTT CBC W/AUTO [id number] 13:16:00 Test Item Value Reference Range Interpretation Comments WHITE BLOOD CELL (test code = 7.3 x10 3/uL 4.8-10.8 N WBC) RED BLOOD CELL (test code = 4.18 x10 6/uL 4.20-5.40 L RBC) HEMOGLOBIN (test code = HGB) 13.0 g/dL 12.0-16.0 N HEMATOCRIT (test code = HCT) 39.0 % 37.0-47.0 N MEAN CELL VOLUME (test code = 93.3 fL 81.0-99.0 N MCV) MEAN CELL HGB (test code = MCH) 31.1 pg 27-31 H MEAN CELL HGB CONCENTRATION 33.3 G/DL 33-36.5 N (test code = MCHC) RED CELL DISTRIBUTION WIDTH 12.2 % 12.9-16.9 L (test code = RDW) PLATELET COUNT (test code = 247 x10 3/uL 150-440 N PLT) MEAN PLATELET VOLUME (test code 12.3 fL 8.9-12.4 N = MPV) NEUTROPHIL % (test code = NT%) 48.8 % 42.2-75.2 N LYMPHOCYTE % (test code = LY%) 40.9 % 20.5-51.1 N MONOCYTE % (test code = MO%) 7.8 % 1.7-9.3 N EOSINOPHIL % (test code = EO%) 1.9 % 0.0-7.0 N BASOPHIL % (test code = BA%) 0.3 % 0-2.5 N NEUTROPHIL # (test code = NT#) 3.55 x10 3/uL 1.80-7.70 N LYMPHOCYTE # (test code = LY#) 2.98 x10 3/uL 1.00-4.80 N MONOCYTE # (test code = MO#) 0.57 x10 3/uL 0.00-0.80 N EOSINOPHIL # (test code = EO#) 0.14 x10 3/uL 0.00-0.45 N BASOPHIL # (test code = BA#) 0.02 x10 3/uL 0.0-0.20 N - US ABDOMEN [id number] 13:09:00 [facility] 1990 Sex: FPatient Name: SARAH PADILLA Unit No: [id number] EXAMS: CPT CODE: [id number] US ABDOMEN COMPLETE [id number] Exam:Complete abdomen ultrasound Location: W1 Clinical Indication:29-year-old with right upper quadrant pain Comparison:None Findings:A complete abdomen ultrasound was performed. The liver has normal contour and echogenicity. No intrahepatic biliary distention or mass. Echogenic calculi are layering within the gallbladder. No gallbladder wall thickening or pericholecystic fluid. The common bile duct is 3 to 4 mm in diameter, normal. Main portal vein has flow. Theright kidney is 11.7 cm in length and the left is 11.5 cm. No renal calculus or hydronephrosis. The pancreas is mostly obscured by overlying structures. The partially visualized abdominal aorta and IVC have normal caliber. Spleen is not enlarged. Impression: Cholelithiasis, without evidence of acute cholecystitis. at 1309 Reported and signed by: Dain Shepherd MD CC: Stu Jones MD Technologist: Cady Ortiz Probe: Trscr Dt/Tm: 05/05/2020 (1309) by:[email or web address] Printed Date/Time: 05/05/2020 (6153) Name: SARAH PADILLA [facility] Phys: Stu Joaquin MD [address] : 1990 Age: 29 Sex: [place] [address] Loc: BESSY Exam Date: 05/05/2020 Status: REG CLI PH: FAX: PAGE 1 Signed Report
[2021-06-22 11:18] LABS: Urine Blood Negative (Negative); Urine Glucose Negative (Negative); Urine Protein Negative (Negative); Urine pH 7.5 (5.0-7.0)
[2021-06-22 11:19] LABS: Absolute Lymphocytes (CBC) 2.5 K/uL (0.7-4.9); Lymphocytes % 29.8 % (15.3-44.8); MPV 9.2 fL (7.6-11.3); RBC Red Blood Cell Count 3.16 M/uL (3.86-4.86)
[2021-06-22] MEDS ORDERED: NA CHLORIDE 0.9% 1,000 ML ONE (11:21)
[2021-06-22 11:31] LABS: BUN Blood Urea Nitrogen 9 mg/dL (7-18); Bicarbonate 24 mmol/L (21-32); Glucose Level 81 mg/dL (74-106); Potassium 3.9 mmol/L (3.5-5.1); Sodium Level 139 mmol/L (136-145)
--- NOTE | 2021-06-22 12:04 | RAD REPORT ---
EXAM DESCRIPTION: RAD - Chest Single View - 06/22/2021 11:31 am CLINICAL HISTORY: hypotension COMPARISON: Two view chest 11/06/2014 TECHNIQUE: AP portable chest image was obtained 06/22/2021 11:31 am . FINDINGS: Lungs are clear. Heart and vasculature are normal. No measurable pleural effusion and no p neumothorax. No acute bony abnormality seen. No acute aortic findings suspected. IMPRESSION: No acute cardiopulmonary process. No significant change from comparison study.
--- NOTE | 2021-06-22 12:39 | RAD REPORT ---
EXAM DESCRIPTION: US - OB Multi Gestation - 06/22/2021 11:30 am CLINICAL HISTORY: hypotension, twin COMPARISON: No comparisons FINDINGS: Limited ultrasound. Twin gestations again identified. The fetus designated A has a posteri or and fundal placenta. The fetus designated B has a fundal and anterior placenta. heart tones are present within both fetuses. Fetus A heart rate is estimated at around 150 beats. minute. Fetus B heart rate is estimated at 143 beats per minute. The cervix is closed measuring 5.8 cm. No funnelin g is identified. . IMPRESSION: 1. Limited ultrasound. 2. Twin gestations identified with positive heart tones. 3. Closed cervix.
[2021-06-22 12:44] LABS: SARS-COV-2 RT PCR NEGATIVE (NEGATIVE)
--- NOTE | 2021-06-22 14:02 | ER ---
Nurse's Notes [facility] Name: Joanna Corado Age: 30 yrs Sex: Female : 1990 Arrival Date: 06/22/2021 Time: 10:54 Bed 4 Private MD: Diagnosis: Hypotension, unspecified;Dizziness and giddiness Presentation: 06/22 11:00 Chief complaint: EMS states: ems called for low blood pressure at [facility] [employer]. went into see [facility] due to cough that started 4-5 days ago. 11:00 Method Of Arrival: EMS: [facility] 11:00 Coronavirus screen: Client denies travel out of the [place] in the last 14 days. At this [facility] time, the client does not indicate any symptoms associated with coronavirus-19. Ebola Screen: Patient negative for fever greater than or equal to 101.5 degrees Fahrenheit, and additional compatible Ebola Virus Disease symptoms Patient denies exposure to infectious person. Patient denies travel to an Ebola-affected area in the 21 days before illness onset. Initial Sepsis Screen: Does the patient meet any 2 criteria? No. Patient's initial sepsis screen is negative. Does the patient have a suspected source of infection? No. Patient's initial sepsis screen is negative. Risk Assessment: Do you want to hurt yourself or someone else? Patient reports no desire to harm self or others. Onset of symptoms was June 22, 2021. 11:00 Acuity: DIAZ 3 [facility] Triage Assessment: 11:11 General: Appears in no apparent distress. Pain: Denies pain. [facility] Historical: - Allergies: 11:13 No Known Allergies; [facility] - PMHx: 11:13 Asthma; PCOS; Hypertension; [facility] - Immunization history:: Adult Immunizations up to date. - Social history:: Smoking status: Patient denies any tobacco usage or history of. - Family history:: not pertinent. - Hospitalizations: : No recent hospitalization is reported. Screenin:12 Abuse screen: Denies threats or abuse. Nutritional screening: No deficits noted. [facility] Tuberculosis screening: No symptoms or risk factors identified. Fall Risk IV access (20 points). Gait- Normal/Bed Rest/Wheelchair (0 pts). Assessment: 11:12 General: Appears in no apparent distress. comfortable, Behavior is calm, cooperative. jh6 Pain: Denies pain. Neuro: Level of Consciousness is awake, alert, obeys commands, Oriented to person, place, time. 11:15 Reassessment: No changes from previously documented assessment. ultrasound at bedside jh6 evaluating babies. pt resting without pain or dizziness. 11:38 Reassessment: after pt was sat up for chest x ray, pt became dizzy and felt like she jh6 was going to pass out. B/P was evaluated and noted to have hypotension. Pt was placed in Trendelenburg, secondary iv started and second liter of ns started. 11:43 General: pt laying on l side, reported that she is feeling better and is not having any jh6 dizziness at this time. spouse at bedside. pts skin is w/d. 12:17 Reassessment: No changes from previously documented assessment. Patient is alert, jh6 oriented x 3, equal unlabored respirations, skin warm/dry/pink. pt not feeling dizzy, has been taken out of Trendelenburg and able to maintain b/p at this time. Patient denies pain at this time. Patient states feeling better. Patient states symptoms have improved. 13:33 Reassessment: Patient is alert, oriented x 3, equal unlabored respirations, skin jh6 warm/dry/pink. Patient denies pain at this time. Patient states feeling better. Patient states symptoms have improved. Pt able to stand without dizziness or hypotension and was also able to walk to bathroom without and change in status. fluids complete and family at bedside. . 13:59 Reassessment: Patient and/or family updated on plan of care and expected duration. Pain jh6 level reassessed. PT ABLE TO WALK 200FT PLUS WITHOUT DIZZINESS AND OR HYPOTENSION. MD MADE AWARE Patient denies pain at this time. Patient states feeling better. Patient states symptoms have improved. Vital Signs: 11:00 BP 109 / 56; Pulse 80; Resp 18; Temp 97.7(O); Pulse Ox 100% ; Weight 95.25 kg; Height 5 jh6 ft. 5 in. (165.10 cm); Pain 0/10; 11:18 BP 119 / 70; Pulse 113; Resp 17; Pulse Ox 100% ; Pain 0/10; jh6 11:24 BP 64 / 23; Pulse 126; Resp 16; Pulse Ox 100% ; Pain 0/10; jh6 11:27 BP 76 / 47; Pulse 106; Resp 16; Pulse Ox 100% ; jh6 11:31 BP 106 / 75; Pulse 68; Resp 16; Pulse Ox 100% ; Pain 0/10; jh6 11:35 BP 106 / 68; Pulse 69; Resp 17; Pulse Ox 100% ; Pain 0/10; jh6 12:18 BP 114 / 70; Pulse 81; Resp 16; Pulse Ox 100% ; Pain 0/10; jh6 13:34 BP 102 / 59; Pulse 82; Resp 17; Pulse Ox 100% ; Pain 0/10; jh6 14:00 BP 112 / 62; Pulse 83; Resp 17; Pulse Ox 100% ; Pain 0/10; jh6 11:00 Body Mass Index 34.95 (95.25 kg, 165.10 cm) 6 ED Course: 10:54 Patient arrived in ED. rn 10:54 Rod Ratliff MD is Attending Physician. rn 11:05 Placed in gown. Bed in low position. Call light in reach. Side rails up X2. Adult w/ 6 patient. 11:08 Iman Sahu RN is Primary Nurse. [facility] 11:11 Triage completed. [facility] 11:11 Arm band placed on right wrist. Patient placed in an exam room, on a stretcher, on 6 manager diversity, on pulse oximetry. 11:12 Maintain EMS IV. Dressing intact. Good blood return noted. Site clean \T\ dry. Gauge \T\ 6 site: 18g lt ac. 11:26 OB Multi Gestation In Process Unspecified. EDMS 11:33 XRAY Chest (1 view) In Process Unspecified. EDMS 14:17 No provider procedures requiring assistance completed. 6 14:17 IV discontinued, intact, bleeding controlled, No redness/swelling at site. Pressure 6 dressing applied. Administered Medications: 11:20 Drug: NS 0.9% 1000 ml Route: IV; Rate: 1000 ml; Site: left antecubital; 6 13:00 Follow up: IV Status: Completed infusion [facility] Outcome: 14:01 Discharge ordered by . rn 14:17 Discharged to home ambulatory. 6 14:17 Condition: improved 14:17 Discharge instructions given to patient, family, Instructed on discharge instructions, follow up and referral plans. Demonstrated understanding of instructions, follow-up care, medications, Prescriptions given X 1. 14:18 Patient left the ED. jh6 Signatures: Dispatcher [employer] EDMS Rod Ratliff MD MD rn Hastedt, Jennifer, RN RN 6 Corrections: (The following items were deleted from the chart) 11:43 11:31 BP 106 / 68; Pulse 69bpm; Resp 17bpm; Pulse Ox 100%; Pain 0/10; jh6 jh6 13:34 13:33 Reassessment: Patient is alert, oriented x 3, equal unlabored respirations, skin jh6 warm/dry/pink. Patient denies pain at this time. Patient states feeling better. Patient states symptoms have improved. jh6
--- NOTE | 2021-06-22 14:02 | EDPHYS ---
Physician Documentation [facility] Name: Joanna oCrado Age: 30 yrs Sex: Female : 1990 Arrival Date: 06/22/2021 Time: 10:54 Bed 4 Private MD: ED Physician Rod Ratliff HPI: 06/22 13:55 This 30 yrs old Female presents to ER via EMS with complaints of dizziness, low blood rn pressure. 13:55 The patient presents with dizziness, feeling faint, lightheadedness. Onset: The rn symptoms/episode began/occurred this morning. Context: occurred at home, at an office, occurred while the patient was at rest, standing, just prior to the episode the patient experienced no apparent symptoms. Modifying factors: The symptoms are alleviated by lying down, the symptoms are aggravated by standing up, changing position. Associated signs and symptoms: Pertinent positives: , Pertinent negatives: abdominal pain, chest pain, focal weakness, head injury, headache, seizure, shortness of breath, syncope, vomiting. Severity of symptoms: At their worst the symptoms were moderate in the emergency department the symptoms have improved. The patient has not experienced similar symptoms in the past. The patient has been recently seen by a physician:. And from doctor's office for dizziness and low blood pressure. Patient 24 weeks with twins. Denies any vaginal bleeding or leakage of fluid. Denies abdominal pain. Denies vomiting or diarrhea. Denies fever. Does not feel ill. Was at doctor's office for a cough. Denies shortness of breath. On EMS arrival patient's blood pressure was 90s systolic, laid on her left side and given some fluids with improvement of blood pressure. Patient states she feels better.. Historical: - Allergies: 11:13 No Known Allergies; jh6 - PMHx: 11:13 Asthma; PCOS; Hypertension; jh6 - Immunization history:: Adult Immunizations up to date. - Social history:: Smoking status: Patient denies any tobacco usage or history of. - Family history:: not pertinent. - Hospitalizations: : No recent hospitalization is reported. ROS: 13:55 Constitutional: Negative for fever, chills, and weight loss, Eyes: Negative for injury, rn pain, redness, and discharge, ENT: Negative for injury, pain, and discharge, Neck: Negative for injury, pain, and swelling, Cardiovascular: Negative for chest pain, palpitations, and edema, Respiratory: Negative for shortness of breath, wheezing, and pleuritic chest pain, Abdomen/GI: Negative for abdominal pain, nausea, vomiting, diarrhea, and constipation, Back: Negative for injury and pain, : Negative for injury, bleeding, discharge, and swelling, MS/Extremity: Negative for injury and deformity, Skin: Negative for injury, rash, and discoloration, Neuro: Negative for headache, weakness, numbness, tingling, and seizure. Exam: 13:55 Constitutional: This is a well developed, well nourished patient who is awake, alert, rn and in no acute distress. Head/Face: Normocephalic, atraumatic. Eyes: Pupils equal round and reactive to light, extra-ocular motions intact. Lids and lashes normal. Conjunctiva and sclera are non-icteric and not injected. Cornea within normal limits. Periorbital areas with no swelling, redness, or edema. ENT: dry MM Cardiovascular: Regular rate and rhythm. No pulse deficits. Respiratory: No increased work of breathing, no retractions or nasal flaring. Abdomen/GI: Soft, non-tender Skin: Warm, dry, no rash MS/ Extremity: Pulses equal, no cyanosis. Neuro: Awake and alert, GCS 15, oriented to person, place, time, and situation. Cranial nerves II-XII grossly intact. Motor strength 5/5 in all extremities. Sensory grossly intact. Cerebellar exam normal. Normal gait. Vital Signs: 11:00 BP 109 / 56; Pulse 80; Resp 18; Temp 97.7(O); Pulse Ox 100% ; Weight 95.25 kg; Height 5 jh6 ft. 5 in. (165.10 cm); Pain 0/10; 11:18 BP 119 / 70; Pulse 113; Resp 17; Pulse Ox 100% ; Pain 0/10; jh6 11:24 BP 64 / 23; Pulse 126; Resp 16; Pulse Ox 100% ; Pain 0/10; jh6 11:27 BP 76 / 47; Pulse 106; Resp 16; Pulse Ox 100% ; jh6 11:31 BP 106 / 75; Pulse 68; Resp 16; Pulse Ox 100% ; Pain 0/10; jh6 11:35 BP 106 / 68; Pulse 69; Resp 17; Pulse Ox 100% ; Pain 0/10; [facility] 12:18 BP 114 / 70; Pulse 81; Resp 16; Pulse Ox 100% ; Pain 0/10; 6 13:34 BP 102 / 59; Pulse 82; Resp 17; Pulse Ox 100% ; Pain 0/10; 6 14:00 BP 112 / 62; Pulse 83; Resp 17; Pulse Ox 100% ; Pain 0/10; 6 11:00 Body Mass Index 34.95 (95.25 kg, 165.10 cm) [facility] MDM: 10:54 Patient medically screened. rn 14:00 ED course: Pt improved, states feels much better, last few BP stable. Has been up to rn bathroom and ambualtory around ER without further episodes of dizziness or hypotension. no clear etiology, cxr clear in terms of cough. COVID/Flu neg. Normal WBC and lactate. Maybe positional as improved when moved to her left side. Had long discussion with her and and understand return precautions and need to f/u with her OB.. 06/22 10:55 Order name: CBC with Diff; Complete Time: 13:04 06/22 10:55 Order name: Basic Metabolic Panel; Complete Time: 13: 06/22 10:55 Order name: Lactate; Complete Time: 13: 06/22 10:55 Order name: COVID-19/FLU A+B (Document "Date of Onset" if Symptomatic); Complete Time: rn 13:06/22 10:55 Order name: XRAY Chest (1 view); Complete Time: 13: 06/22 10:55 Order name: IV Start; Complete Time: 11:08 06/22 10:56 Order name: Strep; Complete Time: 13: 06/22 11:10 Order name: OB Multi Gestation; Complete Time: 13:04 [facility] 06/22 11:19 Order name: Urine Dipstick-Ancillary; Complete Time: 13:04 [facility] 06/22 11:44 Order name: Throat Culture [facility] 06/22 10:55 Order name: Urine Dipstick-Ancillary (obtain specimen); Complete Time: 11:20 rn Administered Medications: 11:20 Drug: NS 0.9% 1000 ml Route: IV; Rate: 1000 ml; Site: left antecubital; [facility] 13:00 Follow up: IV Status: Completed infusion [facility] Disposition Summary: 06/22/21 14:01 Discharge Ordered Location: Home rn Problem: new rn Symptoms: have improved rn Condition: Stable rn Diagnosis - Hypotension, unspecified rn - Dizziness and giddiness rn Followup: rn - With: Private Physician - When: As needed - Reason: Recheck today's complaints, Re-evaluation by your physician Discharge Instructions: - Discharge Summary Sheet rn - Dizziness rn - Hypotension rn Forms: - Medication Reconciliation Form rn - Thank You Letter 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 EDMS EDMS 11:59 10:56 PCT+C.LAB.BRZ ordered. EDMS EDMS
[2021-06-22 14:22] VITALS: TEMP 97.7; O2SAT 100
[2021-06-22 14:33] VITALS: BP 112/62
== END 2021-06-22 14:18 | disposition home or self-care (01) ==
LOC: ER 10:52
DX: O26.52 Maternal hypotension syndrome, second trimester (principal); O30.042 Twin pregnancy, dichorionic/diamniotic, second trimester; Z3A.24 24 weeks gestation of pregnancy; Z20.822 Contact with and (suspected) exposure to COVID-19
CPT/HCPCS: 96361; 87070; 85025; 80048; 36415; 87081; 83605; 81003; 0240U; 71045; 76810; 96360; 99284; J7030